=== PATIENT | female | born 1990 | race Caucasian/White ===

== ENCOUNTER 2016-09-22 13:53 | Emergency (ER) | payer MEDICAID, OTHER ==
--- NOTE | 2016-09-22 14:33 | ED.PDOC ---
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 Was seen yesterday by her OB and her U/S was reassuring. She says she is unsure if they are actual contractions. No bleeding. No fluid per vagina. No other complaints. Patient is on clonipin for anxiety associated with her thyroid disease. Timing/Duration: 1-3 hours Severity: mild Improving Factors: nothing Worsening Factors: nothing Associated Symptoms: denies symptoms Allergies/Adverse Reactions: Allergies Acetaminophen [From Tylenol W/Codeine] Allergy (Verified 09/22/16 14:15) Hives Bupropion [From Wellbutrin] Allergy (Verified 10/06/15 09:43) Codeine [From Tylenol W/Codeine] Allergy (Verified 10/06/15 09:43) Home Medications: Ambulatory Orders Clonazepam [Klonopin] 2 mg PO DAILY PRN 09/22/16 Vit W/ Ferrous Fumara [] 1 tab PO DAILY 09/22/16 Sertraline HCl [Zoloft] 100 mg PO DAILY 09/22/16 Review of Systems - Review of Systems Constitutional: States: no symptoms reported EENTM: States: no symptoms reported Respiratory: States: no symptoms reported Cardiology: States: no symptoms reported Gastrointestinal/Abdominal: States: no symptoms reported Genitourinary: States: see HPI Musculoskeletal: States: no symptoms reported Skin: States: no symptoms reported Neurological: States: no symptoms reported Endocrine: States: no symptoms reported Hematologic/Lymphatic: States: no symptoms reported Past Medical History (General) - Patient Medical History Hx Seizures: No Hx Stroke: No Hx Asthma: No Hx Congestive Heart Failure: No Hx Thyroid Disease: No Hx Diabetes: No Hx Renal Disease: No Hx Hepatitis C: Yes Hx MRSA: No - Vaccination History Hx Tetanus, Diphtheria Vaccination: No Hx Influenza Vaccination: Yes - 2015 Hx Pneumococcal Vaccination: No - Social History Hx Tobacco Use: Yes Hx Alcohol Use: Yes 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 Hx Substance Use Treatment: Yes - 2008 Hx Depression: Yes - Female History Patient is a Female of Child Bearing Age (10 -59 yrs old): Yes Hx Last Menstrual Period: 10/25/13 Patient : Yes Expected Date of Delivery:: 10/13/16 Family Medical History - Family History Mother Family History: Unknown Name: alon Living Status: Still Living Hx Family Asthma: No Hx Family Congestive Heart Failure: No Hx Family Hypertension: No Hx Family Stroke: No Hx Cardiac Disease: No Hx Family Diabetes: No Hx Family Cancer: No Physical Exam - Physical Exam General Appearance: Alert Respiratory: lungs clear Cardiovascular/Chest: regular rate, rhythm Gastrointestinal/Abdominal: normal bowel sounds, non tender, soft, other - Gravid Extremity: normal inspection Neurologic: no motor/sensory deficits Skin Exam: normal color Comments: Pelvic exam showed vertex presentation with anterior cervix. Os is fingertip. FHTs 140s. Progress - Progress Progress: 09/22/16 14:36 Her OB, Dr. Raza was called, and it was agreed to give the patient something for anxiety and send her home with orders to follow up with him tomorrow or tuesday. Patient was given ativan 1 mg IV x one. Departure - Departure Clinical Impression: Disposition: Discharge to Home or Self Care Departure Forms: ED Discharge - Pt. 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 Home Medications: Ambulatory Orders Clonazepam [Klonopin] 2 mg PO DAILY PRN 09/22/16 Vit W/ Ferrous Fumara [] 1 tab PO DAILY 09/22/16 Sertraline HCl [Zoloft] 100 mg PO DAILY 09/22/16 Additional Instructions: Follow up with your relief docking master tomorrow or tuesday.
[2016-09-22] MEDS ORDERED: KCL 20MEQ/WATER FOR INJ 100ML 20 MEQ in PREMIX BAG 1 BAG IVPB ONE (15:26)
[2016-09-22] MEDS ORDERED: KCL 20MEQ/WATER FOR INJ 100ML 100 ML IVPB ONE (15:34)
[2016-09-22] MEDS ORDERED: SODIUM CHLORIDE 0.9% 1000ML 1,000 ML ONE (16:05)
[2016-09-23 12:11] VITALS: BP 112/72; TEMP 98.5; O2SAT 98
== END 2016-09-22 18:13 | disposition home or self-care (01) ==
LOC: ER 13:53
DX: O99.283 Endocrine, nutritional and metabolic diseases complicating pregnancy, third trimester (principal); O99.343 Other mental disorders complicating pregnancy, third trimester; E07.9 Disorder of thyroid, unspecified; F41.9 Anxiety disorder, unspecified; Z79.899 Other long term (current) drug therapy; Z87.891 Personal history of nicotine dependence; Z88.6 Allergy status to analgesic agent; Z3A.37 37 weeks gestation of pregnancy
CPT/HCPCS: 36415; 80053; 84132; 85025; J2060; J3480

== ENCOUNTER → 2017-02-28 | Outpatient (CLI) | payer OTHER | END | disposition home or self-care (01) | LOC: YCFC.O 09:36 | PROVIDERS: ATTEND Nurse Practitioner Family | DX: K62.5 Hemorrhage of anus and rectum (principal); K25.7 Chronic gastric ulcer without hemorrhage or perforation; R53.83 Other fatigue ==

== ENCOUNTER → 2017-06-29 | Outpatient (CLI) | payer OTHER | LOC: YCFC.O 16:42 | PROVIDERS: ATTEND Nurse Practitioner Family | DX: O92.70 Unspecified disorders of lactation (principal) ==

== ENCOUNTER 2017-11-26 10:40 | Emergency (ER) | payer OTHER ==
[2017-11-26 10:58] VITALS: TEMP 98.2
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
[2017-11-26 12:08] VITALS: BP 102/72; O2SAT 92
== END 2017-11-26 12:08 | disposition home or self-care (01) ==
LOC: ER 10:40
DX: S06.0X9A Concussion with loss of consciousness of unspecified duration, initial encounter (principal); S00.03XA Contusion of scalp, initial encounter; J45.909 Unspecified asthma, uncomplicated; Z87.19 Personal history of other diseases of the digestive system; Z86.19 Personal history of other infectious and parasitic diseases; Y09 Assault by unspecified means; Z87.891 Personal history of nicotine dependence

== ENCOUNTER 2018-01-12 17:01 | Emergency (ER) | payer OTHER ==
[2018-01-12] MEDS ORDERED: KETOROLAC TROMETHAMINE INJ 30 MG/ML VIAL IM ONE (17:29)
[2018-01-12] MEDS ORDERED: PROMETHAZINE HCL 25 MG TAB PO ONE (17:29)
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
[2018-01-12] MEDS ORDERED: CIPROFLOXACIN 500 MG TAB PO ONE (19:02)
[2018-01-12] MEDS ORDERED: methylPREDNISolone SODIUM SUC 125 MG/2 ML VIAL IV ONE (19:02)
[2018-01-12] MEDS ORDERED: metroNIDAZOLE IV PREMIX 500MG 500 MG in PREMIX BAG 1 BAG IVPB ONE (19:02)
[2018-01-12] MEDS ORDERED: MORPHINE SULFATE INJ 10 MG/ML VIAL IV ONE (19:02)
[2018-01-12] MEDS ORDERED: SODIUM CHLORIDE 0.9% 1000ML 1,000 ML IVS ONE (19:03)
[2018-01-12] MEDS ORDERED: predniSONE 20 MG TAB PO ONE (19:07)
[2018-01-12] MEDS ORDERED: metroNIDAZOLE 500 MG TAB PO ONE (19:07)
[2018-01-12] MEDS ORDERED: sulfaSALAzine TAB 500 MG TAB PO ONE (19:08)
--- NOTE | 2018-01-12 19:11 | ED.PDOC ---
History of Present Illness - General Chief Complaint: Abdominal Pain Stated Complaint: Abdominal pain Time Seen by Provider: 01/12/18 17:05 Source: patient Exam Limitations: no limitations - History of Present Illness Initial Comments: the patient is a 27-year-old female presenting to emergency room secondary to abdominal pain primarily to the left and lower abdomen. She has a history of ulcerative colitis and has been off of her sulfasalazine for the last week. She has had some mild nausea but no vomiting. No obstructive symptoms. Questionable low-grade fever. No blood in the stool. She is feeling weak and tired. No syncope or near syncope. She has not had abdominal surgeries in the past. She is scheduled to see her drive in teller tomorrow according to her. Severity: moderate Improving Factors: nothing Worsening Factors: nothing Associated Symptoms: fever/chills, loss of appetite, malaise, nausea/vomiting Allergies/Adverse Reactions: Allergies Acetaminophen [From Tylenol W/Codeine] Allergy (Verified 11/26/17 11:04) Hives Bupropion [From Wellbutrin] Allergy (Verified 11/26/17 11:04) Codeine [From Tylenol W/Codeine] Allergy (Verified 10/06/15 09:43) Home Medications: Ambulatory Orders Albuterol Sulfate [Proair Hfa] 1 - 2 puff INH QID PRN 11/26/17 Cefdinir [Cefdinir] 300 mg PO BID 11/26/17 Cetirizine HCl [Cetirizine HCl] 10 mg PO DAILY 11/26/17 Clonazepam [Clonazepam] 2 mg PO BEDTIME 11/26/17 Gabapentin [Neurontin] 300 mg PO BID 11/26/17 Trazodone HCl [Trazodone HCl] 100 mg PO BEDTIME 11/26/17 Venlafaxine HCl [Venlafaxine HCl ER] 150 mg PO BEDTIME 11/26/17 methIMAzole [Tapazole] 10 mg PO DAILY 11/26/17 Review of Systems - Review of Systems Constitutional: States: fever, malaise EENTM: States: no symptoms reported Respiratory: States: no symptoms reported Cardiology: States: no symptoms reported Gastrointestinal/Abdominal: States: abdominal pain, nausea. Denies: constipation, diarrhea, vomiting Genitourinary: States: no symptoms reported Musculoskeletal: States: no symptoms reported Skin: States: no symptoms reported Neurological: States: no symptoms reported Endocrine: States: no symptoms reported All other Systems: No Change from Baseline Past Medical History (General) - Patient Medical History Hx Seizures: No Hx Stroke: No Hx Asthma: Yes Hx Congestive Heart Failure: No Hx Thyroid Disease: No Hx Diabetes: No Hx Gastroesophageal Reflux: - Hx diverticulitis Hx Renal Disease: No Hx Hepatitis C: Yes Hx MRSA: No - Vaccination History Hx Tetanus, Diphtheria Vaccination: No Hx Influenza Vaccination: Yes - 2016 Hx Pneumococcal Vaccination: No - Social History Hx Tobacco Use: Yes Hx Alcohol Use: Yes 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 Hx Substance Use Treatment: Yes - 2008 Hx Depression: Yes - Female History Patient is a Female of Child Bearing Age (10 -59 yrs old): Yes Hx Last Menstrual Period: 10/25/13 Patient : No Expected Date of Delivery:: 10/13/16 Family Medical History - Family History Mother Family History: No Known Name: alon Living Status: Still Living Hx Family Asthma: No Hx Family Congestive Heart Failure: No Hx Family Hypertension: No Hx Family Stroke: No Hx Cardiac Disease: No Hx Family Diabetes: No Hx Family Cancer: No Physical Exam - Physical Exam General Appearance: Alert, Unkempt Eye Exam: bilateral normal Ears, Nose, Throat: hearing grossly normal, normal ENT inspection, normal pharynx Neck: full range of motion, supple Respiratory: lungs clear, normal breath sounds, no respiratory distress, no accessory muscle use Cardiovascular/Chest: normal peripheral pulses, regular rate, rhythm, no edema Peripheral Pulses: radial,right: 2+, radial,left: 2+, dorsalis pedis,right: 2+, dorsalis pedis,left: 2+ Gastrointestinal/Abdominal: other - see history of present illness.no rebound or peritoneal signs. Rectal Exam: deferred Back Exam: normal inspection, no CVA tenderness Extremity: normal range of motion, non-tender, normal inspection, no pedal edema , normal capillary refill Neurologic: booth cashier II-XII nml as tested, alert, normal mood/affect, oriented x 3 Skin Exam: normal color Comments: Vital Signs - 24 hr 01/12/18 17:10 Temperature 99.1 F Pulse Rate [ 93 H Left Radial] Respiratory 20 Rate Blood Pressure 103/72 [Left Arm] O2 Sat by Pulse 100 Oximetry Progress - Progress Progress: 01/12/18 19:12 the patient to 27-year-old female with history of ulcerative colitis presenting with abdominal pain consistent with another ulcerative colitis flare. She has been off of her sulfasalazine for the last week according to her. White blood cell count is 9000 and ESR and CRP are within normal limits. The patient has deferred admission for IV hydration and IV steroids as well as any IV antibiotics. The patient has received 80 mg of oral prednisone, a dose of sulfasalazine, a dose of ciprofloxacin and metronidazole as well as a dose of a pain pill. She needs to keep herself well hydrated. She needs to keep her scheduled appointment with her drive in teller tomorrow for continuation of care of this flare. ER warnings were given for any significant worsening. Patient has agreed. - Results/Orders Results/Orders: Laboratory Tests 01/12/18 01/12/18 01/12/18 17:28 17:30 17:46 WBC 9.9 RBC 4.56 Hgb 14.1 Hct 41.2 MCV 90.4 MCH 30.9 MCHC 34.2 RDW 13.6 Plt Count 386 MPV 7.6 Absolute Neuts (auto) 6.40 Absolute Lymphs (auto) 2.90 Absolute Monos (auto) 0.40 Absolute Eos (auto) 0.20 Absolute Basos (auto) 0.10 Neutrophils % 64.5 Lymphocytes % 28.9 Monocytes % 4.4 Eosinophils % 1.5 Basophils % 0.7 ESR 5 Sodium Potassium Chloride Carbon Dioxide Anion Gap BUN Creatinine BUN/Creatinine Ratio Random Glucose Serum Osmolality Lactic Acid Calcium Total Bilirubin AST ALT Alkaline Phosphatase C-Reactive Protein Serum Total Protein Albumin Globulin Albumin/Globulin Ratio Amylase Lipase Urine Color Urine Appearance Urine pH Ur Specific [place] Urine Protein Urine Glucose (UA) Urine Ketones Urine Blood Urine Nitrite Urine Bilirubin Urine Urobilinogen Ur Leukocyte Esterase Urine RBC Urine WBC Ur Epithelial Cells Urine Bacteria Urine HCG, Qual Negative 01/12/18 01/12/18 01/12/18 17:46 17:46 17:46 WBC RBC Hgb Hct MCV MCH MCHC RDW Plt Count MPV Absolute Neuts (auto) Absolute Lymphs (auto) Absolute Monos (auto) Absolute Eos (auto) Absolute Basos (auto) Neutrophils % Lymphocytes % Monocytes % Eosinophils % Basophils % ESR Sodium 138 Potassium 3.5 L Chloride 108 Carbon Dioxide 22 Anion Gap 11.5 L BUN 15 Creatinine 0.70 BUN/Creatinine Ratio 21.4 H Random Glucose 93 Serum Osmolality 276.2 Lactic Acid 0.8 Calcium 9.5 Total Bilirubin 0.4 AST 19 ALT 24 Alkaline Phosphatase 67 C-Reactive Protein 0.5 Serum Total Protein 8.0 Albumin 4.4 Globulin 3.6 H Albumin/Globulin Ratio 1.2 Amylase 90 Lipase 41 Urine Color Urine Appearance Urine pH Ur Specific [place] Urine Protein Urine Glucose (UA) Urine Ketones Urine Blood Urine Nitrite Urine Bilirubin Urine Urobilinogen Ur Leukocyte Esterase Urine RBC Urine WBC Ur Epithelial Cells Urine Bacteria Urine HCG, Qual 01/12/18 18:00 WBC RBC Hgb Hct MCV MCH MCHC RDW Plt Count MPV Absolute Neuts (auto) Absolute Lymphs (auto) Absolute Monos (auto) Absolute Eos (auto) Absolute Basos (auto) Neutrophils % Lymphocytes % Monocytes % Eosinophils % Basophils % ESR Sodium Potassium Chloride Carbon Dioxide Anion Gap BUN Creatinine BUN/Creatinine Ratio Random Glucose Serum Osmolality Lactic Acid Calcium Total Bilirubin AST ALT Alkaline Phosphatase C-Reactive Protein Serum Total Protein Albumin Globulin Albumin/Globulin Ratio Amylase Lipase Urine Color Yellow Urine Appearance Clear Urine pH 6.5 Ur Specific [place] 1.025 Urine Protein Negative Urine Glucose (UA) Negative Urine Ketones Negative Urine Blood Negative Urine Nitrite Negative Urine Bilirubin Negative Urine Urobilinogen 0.2 Ur Leukocyte Esterase Negative Urine RBC 0-1 Urine WBC 0-1 Ur Epithelial Cells 0-1 Urine Bacteria 0 Urine HCG, Qual cute abdominal series appears benign. Departure - Departure Clinical Impression: Ulcerative colitis, acute Qualifiers: Digestive disease complication type: without complication Qualified Code(s): K51.90 - Ulcerative colitis, unspecified, without complications Disposition: Discharge to Home or Self Care Condition: Poor Departure Forms: ED Discharge - Pt. Copy, Patient Portal Self Enrollment Instructions: DI for Ulcerative Colitis Diet: bland diet Activity: increase activity as tolerated Referrals: Micki Seo NP [Primary Care Provider] - 1-2 Weeks Home Medications: Ambulatory Orders Albuterol Sulfate [Proair Hfa] 1 - 2 puff INH QID PRN 11/26/17 Cefdinir [Cefdinir] 300 mg PO BID 11/26/17 Cetirizine HCl [Cetirizine HCl] 10 mg PO DAILY 11/26/17 Clonazepam [Clonazepam] 2 mg PO BEDTIME 11/26/17 Gabapentin [Neurontin] 300 mg PO BID 11/26/17 Trazodone HCl [Trazodone HCl] 100 mg PO BEDTIME 11/26/17 Venlafaxine HCl [Venlafaxine HCl ER] 150 mg PO BEDTIME 11/26/17 methIMAzole [Tapazole] 10 mg PO DAILY 11/26/17 Additional Instructions: the patient to 27-year-old female with history of ulcerative colitis presenting with abdominal pain consistent with another ulcerative colitis flare. She has been off of her sulfasalazine for the last week according to her. White blood cell count is 9000 and ESR and CRP are within normal limits. The patient has deferred admission for IV hydration and IV steroids as well as any IV antibiotics. The patient has received 80 mg of oral prednisone, a dose of sulfasalazine, a dose of ciprofloxacin and metronidazole as well as a dose of a pain pill. She needs to keep herself well hydrated. She needs to keep her scheduled appointment with her drive in teller tomorrow for continuation of care of this flare. ER warnings were given for any significant worsening. Patient has agreed. Obviously if the patient continues to worsen instead of improve then she may require additional workup including additional imaging.
[2018-01-12] MEDS ORDERED: HYDROcodone 10MG/APAP 325MG 1 EA TAB PO ONE (19:15)
[2018-01-12 19:27] VITALS: BP 97/64; TEMP 97.8; O2SAT 99
== END 2018-01-12 19:27 | disposition home or self-care (01) ==
LOC: ER 17:01
DX: K51.90 Ulcerative colitis, unspecified, without complications (principal); J45.909 Unspecified asthma, uncomplicated; Z87.19 Personal history of other diseases of the digestive system; Z79.899 Other long term (current) drug therapy
CPT/HCPCS: 36415; 74019; 80053; 81001; 81025; 82150; 83605; 83690; 85025; 85651; 86140; 87040; J1885; J7512; Q0169

== ENCOUNTER 2018-02-09 10:52 | Emergency (ER) | payer OTHER ==
[2018-02-09 11:06] VITALS: TEMP 97.9
--- NOTE | 2018-02-09 11:45 | ED.PDOC ---
History of Present Illness - General Chief Complaint: Behavioral / Psych Stated Complaint: anxiety Time Seen by Provider: 02/09/18 11:45 - History of Present Illness Initial Comments: Shante Euceda 27 y/o female stated that she was in court hearing for child custody by CPS and had a verdict that child will be taken off her care and after wards she had anxiety attack-hyperventilating,crying.She was brought by EMS Timing/Duration: just prior to arrival Severity: moderate Episode Description: see hpi Associated Symptoms: anxiety Allergies/Adverse Reactions: Allergies Acetaminophen [From Tylenol W/Codeine] Allergy (Verified 02/09/18 11:06) Hives Bupropion [From Wellbutrin] Allergy (Verified 02/09/18 11:06) Codeine [From Tylenol W/Codeine] Allergy (Verified 02/09/18 11:06) Home Medications: Ambulatory Orders Albuterol Sulfate [Proair Hfa] 1 - 2 puff INH QID PRN 11/26/17 Cefdinir [Cefdinir] 300 mg PO BID 11/26/17 Cetirizine HCl [Cetirizine HCl] 10 mg PO DAILY 11/26/17 Clonazepam [Clonazepam] 2 mg PO BEDTIME 11/26/17 Gabapentin [Neurontin] 300 mg PO BID 11/26/17 Trazodone HCl [Trazodone HCl] 100 mg PO BEDTIME 11/26/17 Venlafaxine HCl [Venlafaxine HCl ER] 150 mg PO BEDTIME 11/26/17 methIMAzole [Tapazole] 10 mg PO DAILY 11/26/17 Review of Systems - Review of Systems Constitutional: States: no symptoms reported EENTM: States: no symptoms reported Respiratory: States: no symptoms reported Cardiology: States: no symptoms reported Neurological: States: emotional problems Past Medical History (General) - Patient Medical History Hx Seizures: Yes Hx Stroke: No Hx Asthma: Yes Hx Congestive Heart Failure: No Hx Thyroid Disease: Yes Hx Diabetes: No Hx Gastroesophageal Reflux: - Hx diverticulitis Hx Renal Disease: No Hx Hepatitis C: Yes Hx MRSA: No Hx Other PMH: Yes - anxiety - Vaccination History Hx Tetanus, Diphtheria Vaccination: No Hx Influenza Vaccination: No Hx Pneumococcal Vaccination: No - Social History Hx Tobacco Use: Yes Hx Alcohol Use: Yes 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 Hx Substance Use Treatment: Yes - 2008 Hx Depression: Yes Hx Physical Abuse: No Hx Emotional Abuse: No Hx Suspected Abuse: No - Female History Patient is a Female of Child Bearing Age (10 -59 yrs old): Yes Hx Last Menstrual Period: 10/25/13 - on transdermal OCP Patient : No Family Medical History - Family History Mother Family History: No Known Name: alon Living Status: Still Living Hx Family Asthma: No Hx Family Congestive Heart Failure: No Hx Family Hypertension: No Hx Family Stroke: No Hx Cardiac Disease: No Hx Family Diabetes: No Hx Family Cancer: No Physical Exam - Physical Exam General Appearance: Alert, Comfortable, No apparent distress Eyes, Ears, Nose, Throat Exam: normal ENT inspection Neck: non-tender, full range of motion, supple Respiratory: chest non-tender, lungs clear, normal breath sounds Cardiovascular/Chest: normal peripheral pulses, regular rate, rhythm, no murmur Peripheral Pulses: radial,right: 2+, radial,left: 2+ Gastrointestinal/Abdominal: normal bowel sounds, non tender, soft, no organomegaly Extremities Exam: non-tender Neurological: oriented x 3, depressed affect, other - crying Appearance: appropriate appearance, appropriate insight, neat, no memory impairment Behavior/Eye Contact/Speech: cooperative, good eye contact, normal speech Thoughts/Hallucinations: normal thought pattern Skin Exam: normal color, warm/dry Progress - Progress Progress: 02/09/18 12:25 Vital Signs - 8 hr 02/09/18 02/09/18 02/09/18 10:56 11:00 12:00 Temperature 97.9 F Pulse Rate [ 135 H 131 H pulse ox] Respiratory 28 H 28 H 24 Rate Blood Pressure 112/56 136/91 129/49 [left arm] O2 Sat by Pulse 100 95 99 Oximetry - Results/Orders Results/Orders: 02/09/18 11:45 URINE DRUG SCREEN, 7 ASSAY Stat EKG STAT HCG,QUALITATIVE URINE Stat URINALYSIS Stat Laboratory Results - last 24 hr 02/09/18 02/09/18 12:33 12:33 WBC 12.4 H RBC 4.37 Hgb 13.7 Hct 38.2 MCV 87.5 MCH 31.3 H MCHC 35.8 RDW 13.1 Plt Count 466 H MPV 8.6 Absolute Neuts (auto) 8.50 H Absolute Lymphs (auto) 2.80 Absolute Monos (auto) 1.00 H Absolute Eos (auto) 0.10 Absolute Basos (auto) 0.10 Neutrophils % 68.5 Lymphocytes % 22.4 Monocytes % 7.9 Eosinophils % 0.7 L Basophils % 0.5 PT 11.7 H INR 1.18 H PTT (SP) 27.1 D-Dimer, Quantitative 1.23 H* Sodium 135 Potassium 2.6 L Chloride 97 L Carbon Dioxide 24 Anion Gap 16.6 BUN 15 Creatinine 0.75 BUN/Creatinine Ratio 20.0 Random Glucose 74 Serum Osmolality 269.6 L Calcium 10.0 Magnesium 1.9 Creatine Kinase 429 H* CK-MB (CK-2) 3.5 CK-MB (CK-2) % 0.80 Troponin I < 0.02 - EKG/XRAY/CT EKG: Sinus, Tachy, no ST T wave changes Comments: HR-137 CT Ordered: Yes - cta-no pulmonary embolus Departure - Departure Clinical Impression: Chest pain of uncertain etiology, Elevated d-dimer, Anxiety attack Time of Disposition: 14:45 Disposition: Discharge to Home or Self Care Departure Forms: ED Discharge - Pt. Copy, Patient Portal Self Enrollment Instructions: DI for Anxiety -- Adult, Anxiety Disorders, Generalized Anxiety Disorder Referrals: Micki Seo NP [Primary Care Provider] - 1-2 Weeks Home Medications: Ambulatory Orders Albuterol Sulfate [Proair Hfa] 1 - 2 puff INH QID PRN 11/26/17 Cefdinir [Cefdinir] 300 mg PO BID 11/26/17 Cetirizine HCl [Cetirizine HCl] 10 mg PO DAILY 11/26/17 Clonazepam [Clonazepam] 2 mg PO BEDTIME 11/26/17 Gabapentin [Neurontin] 300 mg PO BID 11/26/17 Trazodone HCl [Trazodone HCl] 100 mg PO BEDTIME 11/26/17 Venlafaxine HCl [Venlafaxine HCl ER] 150 mg PO BEDTIME 11/26/17 methIMAzole [Tapazole] 10 mg PO DAILY 11/26/17 Additional Instructions: CONTINUE WITH ALL HOME MEDICATIONS;FOLLOW UP WITH YOUR PRIMARY MD 13 February 2018;
[2018-02-09] MEDS ORDERED: LACTATED RINGERS 1,000 ML IVS ONE (11:47)
[2018-02-09 12:19] VITALS: O2SAT 99
--- NOTE | 2018-02-09 14:29 | CT ---
EXAM DESCRIPTION: CTA Chest CLINICAL HISTORY: elevated d dimer /chest pain/tachycardia COMPARISON: None. TECHNIQUE: Postcontrast CT images of the chest are obtained using pulmonary embolism imaging protocol. Three-D MIP reconstructed images of the arterial vasculature are obtained. Coronal and sagittal reconstructed images of the also provided. Images are mildly degraded by patient breathing motion artifact. This exam was performed according to our departmental dose-optimization program, which includes automated exposure control, adjustment of the mA and/or kV according to patient size and/or use of iterative reconstruction technique . FINDINGS: Heart is unremarkable. No thoracic aortic aneurysm or dissection. No filling defects or emboli are seen in the pulmonary arteries. Mid to distal branches of the pulmonary arteries in the lower lobes are not well seen because of breathing motion artifact. No pleural or pericardial effusion is seen. Visualized portion of the upper abdomen is unremarkable. The lungs are normally aerated without acute appearing of tracer consolidation. No worrisome pulmonary nodules are seen. Mild groundglass attenuation in the lung bases suggest atelectasis. Osseous structures show no aggressive bony lesions. IMPRESSION: No radiographic evidence of pulmonary embolism. Mild atelectasis in the lung bases is seen. Electronically signed by: Mauro Cha MD 02/09/2018 2:28 PM CDT
[2018-02-09] MEDS ORDERED: KETOROLAC TROMETHAMINE INJ 30 MG/ML VIAL IV ONE (14:52)
[2018-02-09] MEDS ORDERED: CLINDAMYCIN HCL CAP 150 MG CAP PO ONE (14:52)
[2018-02-09 15:13] VITALS: BP 121/81
== END 2018-02-09 15:15 | disposition home or self-care (01) ==
LOC: ER 10:52
DX: R07.9 Chest pain, unspecified (principal); F41.9 Anxiety disorder, unspecified; F15.20 Other stimulant dependence, uncomplicated; R79.89 Other specified abnormal findings of blood chemistry; R00.0 Tachycardia, unspecified; R56.9 Unspecified convulsions; J45.909 Unspecified asthma, uncomplicated; E07.9 Disorder of thyroid, unspecified; F17.200 Nicotine dependence, unspecified, uncomplicated; Z79.899 Other long term (current) drug therapy; Z86.19 Personal history of other infectious and parasitic diseases
CPT/HCPCS: 36415; 71275; 80048; 82550; 82553; 84484; 85025; 85379; 85610; 85730; 93005; J1885; J2060; J7120

== ENCOUNTER 2018-06-19 13:47 | Emergency (ER) | payer OTHER ==
[2018-06-19] MEDS: LACTATED RINGERS 1,000 ML IVS ONE (14:54)
[2018-06-19] MEDS: KETOROLAC TROMETHAMINE INJ 30 MG/ML VIAL IV ONE (15:16)
--- NOTE | 2018-06-19 15:26 | ED.PDOC ---
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 Timing/Duration: other - see hpi Quality: other Onset Location: unknown Radiation: none Activites at Onset: none Prior abdominal problems: none Sexual intercourse history: single partner Improving Factors: nothing Worsening Factors: nothing Associated Symptoms: denies symptoms Allergies/Adverse Reactions: Allergies Acetaminophen [From Tylenol W/Codeine] Allergy (Verified 02/09/18 11:06) Hives Bupropion [From Wellbutrin] Allergy (Verified 02/09/18 11:06) Codeine [From Tylenol W/Codeine] Allergy (Verified 02/09/18 11:06) Home Medications: Ambulatory Orders medroxyPROGESTERone TAB [Provera] 5 mg PO DAILY 7 Days #7 tab 06/19/18 Review of Systems - Review of Systems Constitutional: States: no symptoms reported EENTM: States: no symptoms reported Respiratory: States: no symptoms reported Cardiology: States: no symptoms reported Gastrointestinal/Abdominal: States: no symptoms reported Genitourinary: States: see HPI Musculoskeletal: States: no symptoms reported Skin: States: no symptoms reported Past Medical History (General) - Patient Medical History Hx Seizures: Yes Hx Stroke: No Hx Asthma: No Hx of COPD: No Hx Cardiac Disorders: No Hx Congestive Heart Failure: No Hx Hypertension: No Hx Thyroid Disease: Yes - hyperthyroidism Hx Diabetes: No Hx Gastroesophageal Reflux: - Hx diverticulitis Hx Renal Disease: No Hx Cancer: No Hx Hepatitis C: Yes Hx MRSA: No Surgical History: no surgical history - Vaccination History Hx Tetanus, Diphtheria Vaccination: No Hx Influenza Vaccination: No Hx Pneumococcal Vaccination: No Immunizations Up to Date: No - Social History Hx Tobacco Use: Yes Hx Alcohol Use: No 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 Hx Substance Use Treatment: Yes - 2008 Hx Depression: Yes Hx Physical Abuse: No Hx Emotional Abuse: No Hx Suspected Abuse: No - Female History Hx Last Menstrual Period: 05/24/18 - on transdermal OCP Patient : No Family Medical History - Family History Mother Family History: No Known Name: alon Living Status: Still Living Hx Family Asthma: No Hx Family Congestive Heart Failure: No Hx Family Hypertension: No Hx Family Stroke: No Hx Cardiac Disease: No Hx Family Diabetes: No Hx Family Cancer: No Physical Exam - Physical Exam General Appearance: Alert, Comfortable, No apparent distress Eyes, Ears, Nose, Throat Exam: normal ENT inspection, other - no exophthalmos Neck: non-tender, supple, normal inspection, other - no thyromegaly Cardiovascular/Respiratory: regular rate, rhythm, no M/R/G, normal peripheral pulses, no JVD, normal breath sounds Gastrointestinal/Abdominal: normal bowel sounds, non tender, soft, no organomegaly Pelvic Exam: no cerv. motion tender, active bleeding - blood clots intravaginally Back Exam: normal inspection, no CVA tenderness, no vertebral tenderness Extremity: non-tender, no pedal edema, no calf tenderness Neurologic: alert, oriented x 3 Skin Exam: normal color, warm/dry Lymphatic: no adenopathy Progress - Progress Progress: 06/19/18 15:38 Vital Signs - 8 hr 06/19/18 06/19/18 13:55 15:23 Temperature 98.4 F Pulse Rate [ 88 60 Brachial] Respiratory 16 16 Rate Blood Pressure 117/79 120/77 [Left Arm] O2 Sat by Pulse 98 99 Oximetry - Results/Orders Results/Orders: 06/19/18 15:24 GENITAL CULTURE Stat WET PREP Routine Laboratory Results - last 24 hr 06/19/18 06/19/18 06/19/18 14:42 Unknown Unknown WBC 6.2 RBC 4.38 Hgb 13.7 Hct 40.9 MCV 93.3 MCH 31.2 H MCHC 33.6 RDW 13.5 Plt Count 269 MPV 9.1 Absolute Neuts (auto) 4.00 Absolute Lymphs (auto) 1.70 Absolute Monos (auto) 0.30 Absolute Eos (auto) 0.10 Absolute Basos (auto) 0.00 Neutrophils % 64.8 Lymphocytes % 28.0 Monocytes % 4.7 Eosinophils % 2.2 Basophils % 0.3 Sodium 137 Potassium 3.4 L Chloride 103 Carbon Dioxide 27 Anion Gap 10.4 L BUN 9 Creatinine 0.46 L BUN/Creatinine Ratio 19.6 Random Glucose 94 Serum Osmolality 272.3 L Calcium 9.4 TSH Serum HCG, Qual Urine Color Yellow Urine Appearance Sl cloudy Urine pH 5.5 Ur Specific [place] 1.020 Urine Protein Negative Urine Glucose (UA) Negative Urine Ketones Negative Urine Blood Large H Urine Nitrite Negative Urine Bilirubin Negative Urine Urobilinogen 0.2 Ur Leukocyte Esterase Negative Urine RBC 30-40 H Urine WBC 0-1 Ur Epithelial Cells 1-3 Urine Bacteria Rare Urine Mucus Trace 06/19/18 06/19/18 Unknown Unknown WBC RBC Hgb Hct MCV MCH MCHC RDW Plt Count MPV Absolute Neuts (auto) Absolute Lymphs (auto) Absolute Monos (auto) Absolute Eos (auto) Absolute Basos (auto) Neutrophils % Lymphocytes % Monocytes % Eosinophils % Basophils % Sodium Potassium Chloride Carbon Dioxide Anion Gap BUN Creatinine BUN/Creatinine Ratio Random Glucose Serum Osmolality Calcium TSH 0.65 Serum HCG, Qual Negative Urine Color Urine Appearance Urine pH Ur Specific [place] Urine Protein Urine Glucose (UA) Urine Ketones Urine Blood Urine Nitrite Urine Bilirubin Urine Urobilinogen Ur Leukocyte Esterase Urine RBC Urine WBC Ur Epithelial Cells Urine Bacteria Urine Mucus Departure - Departure Clinical Impression: Dysfunctional or functional uterine hemorrhage Time of Disposition: 15:59 Disposition: Discharge to Home or Self Care Departure Forms: ED Discharge - Pt. Copy, Patient Portal Self Enrollment Instructions: Heavy Periods (DC), Heavy Periods Referrals: Micki Seo, CHRONIC CARE NURSE [Primary Care Provider] - 1-2 Weeks Prescriptions: medroxyPROGESTERone TAB [Provera] 5 mg PO DAILY 7 Days #7 tab Home Medications: Ambulatory Orders medroxyPROGESTERone TAB [Provera] 5 mg PO DAILY 7 Days #7 tab 06/19/18 Additional Instructions: Need to make appointment with comb tender Dr. Funes call for your appointment 20 June 2018;May take over the counter Aleve 1-2 tablets am/pm for uterine cramps
[2018-06-19 16:32] VITALS: BP 116/77; TEMP 98; O2SAT 96
== END 2018-06-19 16:35 | disposition home or self-care (01) ==
LOC: ER 13:47
DX: N93.8 Other specified abnormal uterine and vaginal bleeding (principal); F15.90 Other stimulant use, unspecified, uncomplicated; F32.9 Major depressive disorder, single episode, unspecified; E05.90 Thyrotoxicosis, unspecified without thyrotoxic crisis or storm; Z87.891 Personal history of nicotine dependence; Z86.19 Personal history of other infectious and parasitic diseases; Z88.8 Allergy status to other drugs, medicaments and biological substances; Z88.5 Allergy status to narcotic agent; Z88.6 Allergy status to analgesic agent
CPT/HCPCS: 36415; 80048; 81001; 84443; 84703; 85025; 87210; 87491; 87591; J1885; J7120

== ENCOUNTER 2018-11-09 18:02 | Emergency (ER) | payer OTHER ==
[2018-11-09 18:37] VITALS: TEMP 98.9; O2SAT 98
--- NOTE | 2018-11-09 18:38 | ED.PDOC ---
History of Present Illness - General Chief Complaint: Skin/Abrasion/Tear Stated Complaint: rednees skin Time Seen by Provider: 11/09/18 18:36 Source: patient Exam Limitations: no limitations - History of Present Illness Initial Comments: Shante Euceda 28 y/o female stated that she had skin redness below her right breast for the last 3 days and squeezed pus out of it. Timing/Duration: other - 2-3 days Severity: mild Location: torso Improving Factors: nothing Worsening Factors: nothing Associated Symptoms: rash Allergies/Adverse Reactions: Allergies Acetaminophen [From Tylenol W/Codeine] Allergy (Verified 02/09/18 11:06) Hives Bupropion [From Wellbutrin] Allergy (Verified 02/09/18 11:06) Codeine [From Tylenol W/Codeine] Allergy (Verified 02/09/18 11:06) Home Medications: Ambulatory Orders Clindamycin HCl 300 mg PO TID #42 cap 11/09/18 Mupirocin 2 % Oint [Bactroban Oint] 22 gm TOP BID 10 Days #1 tube 11/09/18 Review of Systems - Review of Systems Constitutional: States: no symptoms reported EENTM: States: no symptoms reported Respiratory: States: no symptoms reported Skin: States: no symptoms reported All other Systems: Reviewed and Negative, No Change from Baseline Past Medical History (General) - Patient Medical History Hx Seizures: Yes Hx Stroke: No Hx Asthma: No Hx of COPD: No Hx Cardiac Disorders: No Hx Congestive Heart Failure: No Hx Hypertension: No Hx Thyroid Disease: Yes - hyperthyroidism Hx Diabetes: No Hx Gastroesophageal Reflux: - Hx diverticulitis Hx Renal Disease: No Hx Cancer: No Hx Hepatitis C: Yes Hx MRSA: No Surgical History: no surgical history - Vaccination History Hx Tetanus, Diphtheria Vaccination: No Hx Influenza Vaccination: No Hx Pneumococcal Vaccination: No - Social History Hx Tobacco Use: Yes Hx Alcohol Use: No 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 Hx Substance Use Treatment: Yes - 2008 Hx Depression: Yes Hx Physical Abuse: No Hx Emotional Abuse: No Hx Suspected Abuse: No - Female History Hx Last Menstrual Period: 06/16/18 - on transdermal OCP Patient : Yes Expected Date of Delivery:: 03/23/19 Hx Gestational Age: 20 Family Medical History - Family History Mother Family History: No Known Name: alon Living Status: Still Living Hx Family Asthma: No Hx Family Congestive Heart Failure: No Hx Family Hypertension: Yes - father Hx Family Stroke: No Hx Cardiac Disease: No Hx Family Diabetes: No Hx Family Cancer: No Physical Exam - Physical Exam General Appearance: Alert, Comfortable, No apparent distress Eyes, Ears, Nose, Throat Exam: normal ENT inspection Neck: normal inspection Cardiovascular/Chest: normal peripheral pulses, regular rate, rhythm Respiratory: normal breath sounds Gastrointestinal/Abdominal: non tender, soft, other - gravid uterus Back Exam: no CVA tenderness Extremity: no pedal edema, no calf tenderness Neurologic: alert, oriented x 3 Skin Exam: warm/dry Skin Problem Location: torso Skin Character: abscess Lymphatic: no adenopathy Progress - Progress Progress: 11/09/18 19:11 Vital Signs - 8 hr 11/09/18 18:33 Temperature 98.9 F Pulse Rate [ 95 H Pulse Ox] Respiratory 18 Rate Blood Pressure 95/75 [R Arm] O2 Sat by Pulse 98 Oximetry Departure - Departure Clinical Impression: Skin abscess Qualifiers: Site of cutaneous abscess: trunk Site of cutaneous abscess of trunk: chest wall Qualified Code(s): L02.213 - Cutaneous abscess of chest wall Time of Disposition: 19:12 Disposition: Discharge to Home or Self Care Condition: Fair Departure Forms: ED Discharge - Pt. Copy, Patient Portal Self Enrollment Instructions: DI for Abrasion, Skin Abscess Referrals: Micki Seo NP [Primary Care Provider] - 1-2 Weeks Prescriptions: Clindamycin HCl 300 mg PO TID #42 cap Mupirocin 2 % Oint [Bactroban Oint] 22 gm TOP BID 10 Days #1 tube Home Medications: Ambulatory Orders Clindamycin HCl 300 mg PO TID #42 cap 11/09/18 Mupirocin 2 % Oint [Bactroban Oint] 22 gm TOP BID 10 Days #1 tube 11/09/18 Additional Instructions: Follow up with primary Md 13 Nov 2018 for recheck as needed
[2018-11-09] MEDS ORDERED: NEOMYCIN-BACITRACIN-POLYMYXIN 0.9 GM UD TOP ONE (18:52)
[2018-11-09] MEDS ORDERED: CLINDAMYCIN HCL CAP 150 MG CAP PO ONE (19:12)
[2018-11-09 19:45] VITALS: BP 110/82
== END 2018-11-09 19:40 | disposition home or self-care (01) ==
LOC: ER 18:02
DX: O99.719 Diseases of the skin and subcutaneous tissue complicating pregnancy, unspecified trimester (principal); L02.213 Cutaneous abscess of chest wall; O99.280 Endocrine, nutritional and metabolic diseases complicating pregnancy, unspecified trimester; E05.90 Thyrotoxicosis, unspecified without thyrotoxic crisis or storm; O99.340 Other mental disorders complicating pregnancy, unspecified trimester; F32.9 Major depressive disorder, single episode, unspecified; Z3A.00 Weeks of gestation of pregnancy not specified; Z87.891 Personal history of nicotine dependence; Z86.19 Personal history of other infectious and parasitic diseases

== ENCOUNTER → 2018-12-11 | Outpatient (CLI) | payer OTHER | LOC: LAB.O 08:54 | PROVIDERS: ATTEND Obstetrics & Gynecology | DX: O99.282 Endocrine, nutritional and metabolic diseases complicating pregnancy, second trimester (principal); Z3A.24 24 weeks gestation of pregnancy ==

== ENCOUNTER → 2019-02-24 | Day surgery (SDC) | payer OTHER ==
[~2019-02-24] MED LIST: DEXAMETHASONE INJ 10 MG/ML VIAL IV ONE; ELECTROLYTE-A 1,000 ML IVS ONE; HYDROmorphone HCL INJ 2 MG/ML VIAL ONE; KCL 20 MEQ/NS 1,000 ML IVS ONE; LACTATED RINGERS 1,000 ML IVS ONE; LACTATED RINGERS 1,000 ML ONE; MIDAZOLAM INJ 2 MG/2 ML VIAL ONE; MORPHINE SULFATE INJ 10 MG/ML VIAL IV ONE; MORPHINE SULFATE INJ 10 MG/ML VIAL ONE; ONDANSETRON INJ 4 MG/2 ML VIAL ONE; OXYTOCIN INJ 10 UNITS/ML VIAL IM ONE; OXYTOCIN INJ 10 UNITS/ML VIAL ONE; PROMETHAZINE HCL INJ 12.5 MG in SODIUM CHLORIDE 0.9% 50ML 50 ML IVPB ONE; PROMETHAZINE HCL INJ 25 MG/ML VIAL ONE; PROPOFOL 200 MG/20 ML VIAL IV ONE; ROCURONIUM BROMIDE 10 MG/ML VIAL ONE; SODIUM CHLORIDE 0.9% 1000ML 0 ML ONE; SODIUM CHLORIDE 0.9% 1000ML 1,000 ML ONE; SODIUM CHLORIDE 0.9% 250ML 250 ML ONE; SODIUM CHLORIDE 0.9% 50ML 50 ML ONE; SUCCINYLCHOLINE CHLORIDE 200 MG/10 ML VIAL ONE; SUGAMMADEX SODIUM 200 MG/2 ML VIAL IV ONE; ceFAZolin SODIUM 1 GM VIAL IVPB ONE; raNITIdine HCL INJ 25 MG/ML VIAL IV ONE
--- NOTE | 2019-02-24 20:07 | ED.PDOC ---
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 PAIN, 345/7 WK IUP Severity: severe Improving Factors: nothing Worsening Factors: nothing Associated Symptoms: other - ABDOMINAL PAIN Allergies/Adverse Reactions: Allergies Acetaminophen [From Tylenol W/Codeine] Allergy (Verified 02/09/18 11:06) Hives Bupropion [From Wellbutrin] Allergy (Verified 02/09/18 11:06) Codeine [From Tylenol W/Codeine] Allergy (Verified 02/09/18 11:06) Home Medications: Ambulatory Orders Clindamycin HCl 300 mg PO TID #42 cap 11/09/18 Mupirocin 2 % Oint [Bactroban Oint] 22 gm TOP BID 10 Days #1 tube 11/09/18 Review of Systems - Review of Systems Constitutional: States: diaphoresis Gastrointestinal/Abdominal: States: abdominal pain, nausea Genitourinary: States: other - VAGINAL BLEEDING. Denies: dysuria, frequency Musculoskeletal: States: no symptoms reported Skin: States: no symptoms reported, other Endocrine: States: excessive sweating Past Medical History (General) - Patient Medical History Hx Seizures: No Hx Stroke: No Hx Dementia: No Hx Asthma: No Hx of COPD: No Hx Cardiac Disorders: No Hx Congestive Heart Failure: No Hx Pacemaker: No Hx Hypertension: No Hx Thyroid Disease: No Hx Diabetes: No Hx Gastroesophageal Reflux: No Hx Renal Disease: No Hx Cancer: No Hx of HIV: No Hx Hepatitis C: No Hx MRSA: No Surgical History: no surgical history - Vaccination History Hx Tetanus, Diphtheria Vaccination: Yes Hx Influenza Vaccination: No Hx Pneumococcal Vaccination: No Immunizations Up to Date: No - Social History Hx Tobacco Use: Yes Hx Alcohol Use: No Hx Substance Use: No Hx Substance Use Treatment: No Hx Depression: No Feels Threatened In Home Enviroment: No Feels Threatened In a Relationship: No Hx Physical Abuse: No Hx Emotional Abuse: No Hx Suspected Abuse: No - Activities of Daily Living Hospice Agency (if applicable):: None - Female History Patient is a Female of Child Bearing Age (10 -59 yrs old): Yes - 34.5 weeds gestaion Hx Last Menstrual Period: 06/16/18 - on transdermal OCP Patient : Yes Expected Date of Delivery:: 04/01/19 Hx Gestational Age: 35 - REPORTS NO PROBLEMS WITH AND NO ABN US - Triage Comment ED Triage Comment: [email or web address] Family Medical History - Family History Mother Family History: No Known Name: alon Living Status: Still Living Hx Family Asthma: No Hx Family Congestive Heart Failure: No Hx Family Hypertension: Yes - father Hx Family Stroke: No Hx Cardiac Disease: No Hx Family Diabetes: No Hx Family Cancer: No Physical Exam - Physical Exam General Appearance: Obvious distress, Other - PALE Eye Exam: bilateral normal Ears, Nose, Throat: normal ENT inspection Neck: full range of motion, supple Respiratory: lungs clear, normal breath sounds Cardiovascular/Chest: regular rate, rhythm, no murmur Peripheral Pulses: radial,left: 2+ Gastrointestinal/Abdominal: soft, other - GRAVID, DIFFUSE TTP Extremity: no calf tenderness Skin Exam: diaphoresis, other - COOL TO THE TOUCH, pallor Lymphatic: no adenopathy Comments: ACTIVE VAGINAL BLEEDING, SVE, CLOTS, CX NOT WELL PALPATED, NO EVIDENCE FOR COMPLETE DILATION. Progress - Progress Progress: 02/24/191909 D/W DR SWANSON, REQUESTS OR CREW AND HE IS ON HIS WAY 1919: DR CHRISTIANSON CALLED AT [facility]'S REQUEST, HE'S OOT. ADVISES TRY DR BUSTILLOS. D/W DR BUSTILLOS HE'S AVAILABLE WHEN DR SWANSON ARRIVES. 1924: D/W DON, STILL NO CREW OF YET. ADVISED DR SWANSON HE'S STILL ENROUTE. 1934: PT HAS IMPROVED, COLOR BETTER VS NL. ARRANGING FOR POSSIBLE EMS TRANSPORT BACK TO [place] IN THE EVENT WE CANNOT FIND A SURGICAL CREW. 1944: LAB CALLED, CO2 15 K+ 2.5, WILL PLACE ON STEAM CONDITIONER FILLING AND START LR WITH 20 MEQ KCL/L. 1999: DR SWANSON HERE WILL TAKE PT TO OR STATES ITS FINE TO CALL DR BUSTILLOS. Procedures - Additional Procedures Progress: BED SIDE US, SEVERE BRADYCARDIA WITH POOR CARDIAC OUTPUT Departure - Departure Clinical Impression: Placental abruption Qualifiers: Trimester: third trimester Qualified Code(s): O45.93 - Premature separation of placenta, unspecified, third trimester Qualifiers: Weeks of gestation: 35 weeks Qualified Code(s): Z3A.35 - 35 weeks gestation of Time of Disposition: 20:00 Disposition: Admit Patient Condition: Serious Departure Forms: ED Discharge - Pt. Copy, Patient Portal Self Enrollment Referrals: Micki Seo NP [Primary Care Provider] - 1-2 Weeks Home Medications: Ambulatory Orders Clindamycin HCl 300 mg PO TID #42 cap 11/09/18 Mupirocin 2 % Oint [Bactroban Oint] 22 gm TOP BID 10 Days #1 tube 11/09/18 Critical Care Note - Critical Care Note Total Time (mins): 60 Comments: EVENT: PLACENTAL ABRUPTION IN 3RD TRIMESTER FINDINGS: HEAVY VAGINAL BLEEDING, HYPOVOLEMIC SHOCK CV: RACHEL INTERVENTION: FLUID RESUSCITATION, MULTIPLE CONSULTATIONS, ARRANGEMENT FOR OR CREW
[2019-02-24] MEDS: MEPERIDINE HCL 50 MG/ML VIAL ONE ×2 (21:53→21:55)
[2019-02-24] MEDS: HYDROmorphone HCL INJ 2 MG/ML VIAL ONE ×5 (22:05→22:51)
[2019-02-24 22:56] VITALS: O2SAT 99
[2019-02-25 01:15] VITALS: BP 128/74; TEMP 98.4
== END ==
LOC: ER 19:07 → AMB 20:28
PROVIDERS: ATTEND Obstetrics & Gynecology
DX: O45.93 Premature separation of placenta, unspecified, third trimester (principal); Z3A.35 35 weeks gestation of pregnancy
CPT/HCPCS: 36415; 36430; 80051; 80053; 80307; 81001; 82948; 85025; 85610; 85730; 86922; A4216; J0330; J1170; J2175; J2250; J2270; J2405; J2550; J2590; J3480; J7030; J7050; J7120; P9016

== ENCOUNTER → 2019-03-29 | Outpatient (CLI) | payer OTHER | LOC: LAB.O 10:33 | PROVIDERS: ATTEND Obstetrics & Gynecology | DX: Z86.39 Personal history of other endocrine, nutritional and metabolic disease (principal) ==

== ENCOUNTER 2019-05-03 10:44 | Emergency (ER) | payer OTHER ==
[2019-05-03 11:13] VITALS: TEMP 98.6
[2019-05-03] MEDS ORDERED: SODIUM CHLORIDE 0.9% (FLUSH) 10 ML SYG IV PRN (11:14)
[2019-05-03] MEDS ORDERED: SODIUM CHLORIDE 0.9% 1000ML 1,000 ML IVS PRN (11:14)
[2019-05-03] MEDS ORDERED: ONDANSETRON INJ 4 MG/2 ML VIAL IV ONE (11:14)
[2019-05-03] MEDS ORDERED: MORPHINE SULFATE INJ 10 MG/ML VIAL IV ONE ×2 (11:15→12:14)
--- NOTE | 2019-05-03 13:00 | CT ---
EXAM DESCRIPTION: Abdomen/Pelvis w/Contrast: Computed Tomography. CLINICAL HISTORY: 28 years Female left flank pain, ulcerative colitis COMPARISON: CT scan of the chest and upper abdomen 02/09/2018. TECHNIQUE: Spiral-axial scans at 5 x 5 mm intervals through the abdomen and pelvis, after nonionic IV contrast without oral contrast. Coronal and sagittal 2.0 mm reconstructions. No adverse reactions. Total Exam DLP: 425.93 mGy-cm. This exam was performed according to our departmental dose-optimization program which includes automated exposure control, adjustment of the mA and/or kV according to patient size and/or use of iterative reconstruction technique; to reduce radiation dose to as low as reasonably achievable (ALARA). FINDINGS: Lung bases and pleura: Minimal atelectasis in the right base. Liver, Stomach, Spleen, Adrenal Glands: Minimal distention of the stomach by fluid. Long axis of the hepatic right lobe 18.4 cm. No focal lesions. Spleen and adrenals negative. Pancreas, Gallbladder, Ducts: Gallbladder visualized. Other organs unremarkable. Kidneys and Ureters: Negative. Mesentery: Decreased due to patient body habitus, no abnormalities. Aorta: Negative. Small Bowel: Fluid in the distal jejunum and proximal ileum with mild distention and air-fluid levels in these segments. Terminal Ileum/Cecum: Fluid in the terminal ileum but no significant distention. Distention of the cecum by fecal material and minimal gas. Colon: Distention by fecal matter and gas extending to the distal transverse colon. Redundant splenic flexure with gas. Thickening of the mucosa of the distal descending colon and rectosigmoid but no pericolic inflammatory changes. This begins at the proximal descending colon. Pelvic Organs: Uterus is retroverted with IUD in customary position endometrium near the fundus. Air pocket in the left cervix and vagina can be related to tampon, recent examination, or intercourse. No free fluid. 2.5 x 2.3 x 2.2 cm cyst with enhancing camacho in the right ovary. Spine and Bony Pelvis: Negative. Abdominal Wall/Back Soft Tissues: Negative. IMPRESSION: 1. Intermittent mucosal thickening in the descending colon and sigmoid. No serosal or pericolic inflammatory changes. This may be related to clinical history of left lower quadrant pain and posterior colitis. No free air or fluid. Marked proximal colonic constipation. Distal jejunum and proximal ileum, minimally distended by fluid with air-fluid levels but no inflammatory mesenteric changes or free fluid. This could be related to clinical history or represent viral enteritis. 2. Kidneys and ureters are unremarkable. 3. Mild enlargement of the liver but no focal findings and no ascites. 4. 2.5 cm benign appearing right ovarian cyst. No free fluid. No follow-up imaging is recommended. Reference: J Am Shandra Radiol 2013;10:675-681. Uterus is retroverted with IUD in customary position. Electronically signed by: Mac Guevara MD 05/03/2019 12:59 PM CDT
--- NOTE | 2019-05-03 13:18 | ED.PDOC ---
History of Present Illness - General Chief Complaint: Abdominal Pain Stated Complaint: Abdominal pain, N/V, anxiety Time Seen by Provider: 05/03/19 10:45 - History of Present Illness Initial Comments: The patient is a 28F who presents to the ED complaining of abdominal pain with nausea/vomiting and diarrhea. She has been sick for the past two days. Complains of diffuse cramping abdominal pain with vomiting and bloody diarrhea. She has had chills without fevers. Complains of generalized weakness as well. She is currently menstruating. She denies dysuria or other complaints. Review of Systems - Review of Systems Constitutional: States: chills, malaise, weakness - generalized EENTM: States: no symptoms reported Respiratory: Denies: cough, short of breath Cardiology: Denies: chest pain, palpitations Gastrointestinal/Abdominal: States: abdominal pain, diarrhea, nausea, vomiting Genitourinary: Denies: dysuria, frequency, hematuria Musculoskeletal: States: no symptoms reported Skin: States: no symptoms reported. Denies: rash Neurological: States: anxiety. Denies: numbness, paresthesia, tingling, tremors, weakness Endocrine: States: no symptoms reported Hematologic/Lymphatic: States: no symptoms reported All other Systems: Reviewed and Negative Past Medical History (General) - Patient Medical History Hx Seizures: No Hx Stroke: No Hx Dementia: No Hx Asthma: No Hx of COPD: No Hx Cardiac Disorders: No Hx Congestive Heart Failure: No Hx Pacemaker: No Hx Hypertension: No Hx Thyroid Disease: No Hx Diabetes: No Hx Gastroesophageal Reflux: No Hx Renal Disease: No Hx Cancer: No Hx of HIV: No Hx Hepatitis C: No Hx MRSA: No Surgical History: other - Vaccination History Hx Tetanus, Diphtheria Vaccination: No Hx Influenza Vaccination: Yes Hx Pneumococcal Vaccination: No - Social History Hx Tobacco Use: Yes Hx Alcohol Use: No Hx Substance Use: No Hx Substance Use Treatment: No Hx Depression: Yes Hx Physical Abuse: No Hx Emotional Abuse: No Hx Suspected Abuse: No - Female History Patient is a Female of Child Bearing Age (10 -59 yrs old): Yes Hx Last Menstrual Period: 05/03/19 Patient : No Expected Date of Delivery:: 04/01/19 Hx Gestational Age: 35 - REPORTS NO PROBLEMS WITH AND NO ABN US Family Medical History - Family History Mother Family History: No Known Name: alon Living Status: Still Living Hx Family Asthma: No Hx Family Congestive Heart Failure: No Hx Family Hypertension: Yes - father Hx Family Stroke: No Hx Cardiac Disease: No Hx Family Diabetes: No Hx Family Cancer: No Physical Exam - Physical Exam General Appearance: Anxious, No apparent distress, Well Developed, Well Nourished Eyes, Ears, Nose, Throat Exam: normal ENT inspection Neck: full range of motion Respiratory: no respiratory distress Cardiovascular/Chest: regular rate, rhythm, no murmur Peripheral Pulses: No deficit, 2+ Gastrointestinal/Abdominal: normal bowel sounds, no organomegaly, tenderness - mild, diffuse Neurologic: alert, oriented x 3 Skin Exam: normal color, warm/dry Progress - Progress Progress: 05/03/19 11:14 Sodium Chloride 0.9% (Flush) [Saline Flush Syringe] 10 ml IV PRN PRN Sodium Chloride 0.9% 1000ML [Ns 1000 ml] 1,000 ml IVS .QD 05/03/19 11:15 Hold Metformin x 48Hrs [id number] Laboratory Results - last 24 hr 05/03/19 05/03/19 05/03/19 11:33 11:33 11:33 WBC 9.2 RBC 4.64 Hgb 13.8 Hct 41.3 MCV 89.0 MCH 29.8 MCHC 33.5 RDW 14.9 H Plt Count 291 MPV 9.0 Absolute Neuts (auto) 6.40 Absolute Lymphs (auto) 2.10 Absolute Monos (auto) 0.40 Absolute Eos (auto) 0.30 Absolute Basos (auto) 0.10 Neutrophils % 69.5 Lymphocytes % 22.6 Monocytes % 3.9 Eosinophils % 3.4 Basophils % 0.6 Sodium 136 Potassium 4.3 Chloride 103 Carbon Dioxide 22 Anion Gap 15.3 BUN 14 Creatinine 0.88 BUN/Creatinine Ratio 15.9 Random Glucose 94 Serum Osmolality 272.2 L Calcium 9.3 Lipase 27 Serum HCG, Qual Negative Urine Color Urine Appearance Urine pH Ur Specific [place] Urine Protein Urine Glucose (UA) Urine Ketones Urine Blood Urine Nitrite Urine Bilirubin Urine Urobilinogen Ur Leukocyte Esterase Urine RBC Urine WBC Ur Epithelial Cells Urine Bacteria 05/03/19 11:48 WBC RBC Hgb Hct MCV MCH MCHC RDW Plt Count MPV Absolute Neuts (auto) Absolute Lymphs (auto) Absolute Monos (auto) Absolute Eos (auto) Absolute Basos (auto) Neutrophils % Lymphocytes % Monocytes % Eosinophils % Basophils % Sodium Potassium Chloride Carbon Dioxide Anion Gap BUN Creatinine BUN/Creatinine Ratio Random Glucose Serum Osmolality Calcium Lipase Serum HCG, Qual Urine Color Yellow Urine Appearance Clear Urine pH 7.5 Ur Specific [place] 1.015 Urine Protein Negative Urine Glucose (UA) Negative Urine Ketones Negative Urine Blood Negative Urine Nitrite Negative Urine Bilirubin Negative Urine Urobilinogen 0.2 Ur Leukocyte Esterase Negative Urine RBC 0 Urine WBC 0 Ur Epithelial Cells 0-1 Urine Bacteria Rare 05/03/19 13:21 Patient reassessed, workup as above. Her pain is controlled and repeat abdominal exam is benign. Reviewed CT scan showing colitis, constipation, no acute obstruction or other pathology. Will continue outpatient symptomatic management with miralax, colace and antibiotics. She will follow up with her primary care provider. Departure - Departure Clinical Impression: Acute colitis Abdominal pain Qualifiers: Abdominal location: generalized Qualified Code(s): R10.84 - Generalized abdominal pain Time of Disposition: 13:23 Disposition: Discharge to Home or Self Care Condition: Fair Departure Forms: ED Discharge - Pt. Copy, Patient Portal Self Enrollment Instructions: DI for Abdominal Pain-Adult, Diarrhea and Traveler's Diarrhea, Adult (DC) Diet: bland diet Activity: increase activity as tolerated Referrals: Charles Funes MD [Primary Care Provider] - 1-2 Weeks Prescriptions: Tramadol HCl [Tramadol Hydrochloride] 50 mg PO Q6HR PRN #20 tab PRN Reason: Pain Ciprofloxacin [Cipro] 500 mg PO BID #14 tab Docusate Sodium [Colace Cap] 100 mg PO BID #14 cap metroNIDAZOLE [Flagyl] 500 mg PO Q8H #21 tab Ondansetron HCl [Zofran] 4 mg PO Q4H PRN #15 tab PRN Reason: Nausea Prednisone 60 mg PO DAILY #15 tab Home Medications: Ambulatory Orders Clindamycin HCl 300 mg PO TID #42 cap 11/09/18 Mupirocin 2 % Oint [Bactroban Oint] 22 gm TOP BID 10 Days #1 tube 11/09/18 Ciprofloxacin [Cipro] 500 mg PO BID #14 tab 05/03/19 Docusate Sodium [Colace Cap] 100 mg PO BID #14 cap 05/03/19 Ondansetron HCl [Zofran] 4 mg PO Q4H PRN #15 tab 05/03/19 Prednisone 60 mg PO DAILY #15 tab 05/03/19 Tramadol HCl [Tramadol Hydrochloride] 50 mg PO Q6HR PRN #20 tab 05/03/19 metroNIDAZOLE [Flagyl] 500 mg PO Q8H #21 tab 05/03/19 Comments: Hung Arreaga MD Emergency Medicine Physician Number [id number]
[2019-05-03] MEDS ORDERED: traMADol HCL 50 MG TAB PO ONE (13:39)
[2019-05-03 14:13] VITALS: BP 116/75; O2SAT 95
== END 2019-05-03 13:35 | disposition home or self-care (01) ==
LOC: SUPCPDRO 10:44 → ER 10:44
DX: K52.9 Noninfective gastroenteritis and colitis, unspecified (principal); F32.9 Major depressive disorder, single episode, unspecified; Z87.891 Personal history of nicotine dependence
CPT/HCPCS: 36415; 74177; 80048; 81001; 83690; 84703; 85025; J2270; J2405; J7030

== ENCOUNTER 2019-05-25 09:50 | Inpatient (IN) | payer OTHER ==
[2019-05-25] MEDS ORDERED: ONDANSETRON INJ 4 MG/2 ML VIAL IV ONE ×2 (10:23→13:51)
[2019-05-25] MEDS ORDERED: MORPHINE SULFATE INJ 10 MG/ML VIAL IV ONE ×3 (10:23→17:27)
[2019-05-25] MEDS ORDERED: CEFEPIME 2 GM in SODIUM CHL 0.9% 50ML MIN-BAG+ 50 ML IVPB ONE (10:23)
[2019-05-25] MEDS ORDERED: SODIUM CHLORIDE 0.9% 1000ML 1,000 ML IVS ONE (10:23)
--- NOTE | 2019-05-25 10:52 | ED.PDOC ---
History of Present Illness - General Chief Complaint: Abdominal Pain Stated Complaint: L sided abdominal pain, blood in stool Time Seen by Provider: 05/25/19 10:22 Information Source: patient Exam Limitations: no limitations Additional Information: Ms. Euceda is a 28-year-old female who presents to the ED with chief complaint of left-sided abdominal pain. Pain began 3 days ago, has been constant, and is gradually worsening. Patient rates her pain as an 8 out of 10. Patient has a history of ulcerative colitis and indicates she is on no medications for her UC at this time. Her symptoms have been stable for many months. Her GI doctor is Dr. Wright in [place]. Patient denies fever but indicates that she has had nausea and vomiting. Patient has had loose bloody stools since yesterday. Her abdominal pain is crampy in nature. Review of Systems - Review of Systems Constitutional: States: no symptoms reported. Denies: chills, fever EENTM: States: no symptoms reported Respiratory: States: no symptoms reported. Denies: cough, short of breath Cardiology: States: no symptoms reported. Denies: chest pain, palpitations Gastrointestinal/Abdominal: States: see HPI Genitourinary: States: no symptoms reported Musculoskeletal: States: no symptoms reported. Denies: back pain Skin: States: no symptoms reported Neurological: States: no symptoms reported Endocrine: States: no symptoms reported All other Systems: Reviewed and Negative Past Medical History (General) - Patient Medical History Hx Seizures: No Hx Stroke: No Hx Dementia: No Hx Asthma: No Hx of COPD: No Hx Cardiac Disorders: No Hx Congestive Heart Failure: No Hx Pacemaker: No Hx Hypertension: No Hx Thyroid Disease: No Hx Diabetes: No Hx Gastroesophageal Reflux: No Hx Renal Disease: No Hx Cancer: No Hx of HIV: No Hx Hepatitis C: No Hx MRSA: No Surgical History: other - Vaccination History Hx Tetanus, Diphtheria Vaccination: Yes Hx Influenza Vaccination: Yes Hx Pneumococcal Vaccination: No Immunizations Up to Date: Yes - Social History Hx Tobacco Use: Yes Hx Alcohol Use: No Hx Substance Use: No Hx Substance Use Treatment: No Hx Depression: Yes Hx Physical Abuse: No Hx Emotional Abuse: No Hx Suspected Abuse: No - Female History Patient is a Female of Child Bearing Age (10 -59 yrs old): Yes Hx Last Menstrual Period: 05/03/19 Patient : No Expected Date of Delivery:: 04/01/19 Hx Gestational Age: 35 - REPORTS NO PROBLEMS WITH AND NO ABN US Family Medical History - Family History Mother Family History: No Known Name: alon Living Status: Still Living Hx Family Asthma: No Hx Family Congestive Heart Failure: No Hx Family Hypertension: Yes - father Hx Family Stroke: No Hx Cardiac Disease: No Hx Family Diabetes: No Hx Family Cancer: No Physical Exam - Physical Exam General Appearance: Alert, No apparent distress, Other - uncomfortable Eyes, Ears, Nose, Throat Exam: PERRL/EOMI, normal ENT inspection Neck: non-tender, full range of motion, supple, normal inspection Respiratory: chest non-tender, lungs clear, normal breath sounds, no respiratory distress, no accessory muscle use Cardiovascular/Chest: normal peripheral pulses, regular rate, rhythm, no edema Peripheral Pulses: No deficit Gastrointestinal/Abdominal: normal bowel sounds, soft - moderate diffuse abdominal tenderness to palpation greatest in the left lower quadrant Back Exam: normal inspection, no CVA tenderness Extremity: normal range of motion, non-tender, normal inspection Neurologic: management technician II-XII nml as tested, no motor/sensory deficits, alert, normal mood/affect, oriented x 3 Skin Exam: normal color, warm/dry Progress - Progress Progress: 05/25/19 1200 differential diagnosis includes but is not limited to colitis, UC flare, IBS, gastroenteritis. 05/25/19 15:13 Patient is feeling slightly better at this time. Her contrasted CT results show distal colon inflammation consistent with proctitis. 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 Patient's IV has infiltrated and nursing tells me that she is a very difficult IV stick, we'll give po Levaquin and Flagyl in the ED and DC with same and with Rx for analgesics. Strict RT ED precautions discussed with patient. V 05/25/19 15:18 EXAM DESCRIPTION: Abdomen/Pelvis w/Contrast CLINICAL HISTORY: 28 years Female, ulcerative colitis COMPARISON: CT abdomen and pelvis without contrast dated 05/25/2019. TECHNIQUE: Contiguous 3 mm axial images were obtained from the lung bases to the level of the proximal femora after the administration of intravenous and oral contrast. Sagittal and coronal reconstructions were reviewed. FINDINGS: THORAX: The imaged lower thorax demonstrates no gross abnormality. LIVER: The liver demonstrates normal size and density with no intrahepatic biliary ductal dilatation or focal masses. GALLBLADDER: Grossly unremarkable. PANCREAS: Appears normal with no cystic or solid lesions. SPLEEN: Normal ADRENAL GLANDS: Normal with no nodules or masses. KIDNEYS: Both kidneys enhance symmetrically with no hydronephrosis or nephrolithiasis or perinephric fluid collections. No focal masses are identified. The visualized ureters appear grossly unremarkable. STOMACH: Small hiatal hernia with reflux. The stomach is not well-distended limiting detailed evaluation. SMALL BOWEL: The small bowel loops demonstrate variable degrees of distention with no abnormal dilatation or other signs to suggest bowel obstruction. LARGE BOWEL: Circumferential wall thickening and surrounding inflammatory stranding of the distal sigmoid colon and rectum, concerning for proctocolitis. The descending colon is not well-distended. The ascending and transverse colon appears normal. The appendix is well-visualized and appears normal No evidence of free intraperitoneal air or fluid. RETROPERITONEUM: The abdominal aorta is nonaneurysmal with no significant atherosclerosis. The inferior vena cava is normal in size and caliber. No abnormally enlarged retroperitoneal lymph nodes are identified. URINARY BLADDER: Mildly distended with no gross intraluminal abnormality. IUD is identified within the uterus. 4.3 cm left simple ovarian cyst. Right ovary appears normal. ADDITIONAL FINDINGS: None. BONES: No significant degenerative changes are identified in the visualized bones.No evidence of osteophytic or osteoblastic lesions. IMPRESSION: Proctocolitis of the distal sigmoid colon and rectum. 4.3 cm simple left ovarian cyst. No follow-up imaging is recommended. Reference: J Am Shandra Radiol 2013;10:[id number] 05/25/19 16:38 Pt now indicates that she has found someone to care for her children and is able to be admitted to the hospital for IV antibiotics. We'll consult hospitalist for admission. 05/25/19 17:53 I have discussed admission with on-call hospitalist, Dr. Chopra. who accepts patient for admit. He requests that we consult the on-call general surgeon, Dr. Souza. 05/25/19 18:36 I have d/w Dr. Choi who will consult. Departure - Departure Clinical Impression: Proctocolitis Time of Disposition: 15:18 Disposition: Admit Patient Condition: Fair Diet: full liquid diet Referrals: Charles Funes MD [Primary Care Provider] - 1-2 Weeks Prescriptions: metroNIDAZOLE [Flagyl] 500 mg PO Q8H #30 tab Home Medications: Ambulatory Orders Clindamycin HCl 300 mg PO TID #42 cap 11/09/18 Mupirocin 2 % Oint [Bactroban Oint] 22 gm TOP BID 10 Days #1 tube 11/09/18 Ciprofloxacin [Cipro] 500 mg PO BID #14 tab 05/03/19 Docusate Sodium [Colace Cap] 100 mg PO BID #14 cap 05/03/19 Ondansetron HCl [Zofran] 4 mg PO Q4H PRN #15 tab 05/03/19 Prednisone 60 mg PO DAILY #15 tab 05/03/19 Tramadol HCl [Tramadol Hydrochloride] 50 mg PO Q6HR PRN #20 tab 05/03/19 metroNIDAZOLE [Flagyl] 500 mg PO Q8H #21 tab 05/03/19 metroNIDAZOLE [Flagyl] 500 mg PO Q8H #30 tab 05/25/19 Decision To Admit - Decistion To Admit Decision to Admit Reason: Admit from ER
--- NOTE | 2019-05-25 11:50 | CT ---
EXAM DESCRIPTION: Abdoment/Pelvis w/o Contrast CLINICAL HISTORY: 28 years Female, flank pain COMPARISON: 03 May 2019 TECHNIQUE: Transaxial images were obtained with out intravenous or oral contrast media. Sagittal and coronal reconstruction was performed.This exam was performed according to our departmental dose-optimization program, which includes automated exposure control, adjustment of the mA and/or kV according to patient size and/or use of iterative reconstruction technique. FINDINGS: The lung bases are clear. The liver and spleen are normal in appearance. No biliary ductal dilatation is observed. The gallbladder is normal in appearance. No adrenal masses are detected. The pancreas is normal in appearance. Imaging of the kidneys reveals no evidence of hydronephrosis mass cyst or calcification. The appendix is identified and is normal in appearance. An IUD is observed in the uterus. No free pelvic fluid is observed. No inguinal region abnormality is seen. No bone abnormality is seen. A cyst is identified in the left ovary. No follow-up is warranted. No bowel abnormality is detected. IMPRESSION: 1. An IUD is observed in the uterus. 2. No urinary tract calcifications or abnormality is detected. Electronically signed by: Buzz Lizarraga MD 05/25/2019 11:49 AM CDT
--- NOTE | 2019-05-25 14:49 | CT ---
EXAM DESCRIPTION: Abdomen/Pelvis w/Contrast CLINICAL HISTORY: 28 years Female, ulcerative colitis COMPARISON: CT abdomen and pelvis without contrast dated 05/25/2019. TECHNIQUE: Contiguous 3 mm axial images were obtained from the lung bases to the level of the proximal femora after the administration of intravenous and oral contrast. Sagittal and coronal reconstructions were reviewed. FINDINGS: THORAX: The imaged lower thorax demonstrates no gross abnormality. LIVER: The liver demonstrates normal size and density with no intrahepatic biliary ductal dilatation or focal masses. GALLBLADDER: Grossly unremarkable. PANCREAS: Appears normal with no cystic or solid lesions. SPLEEN: Normal ADRENAL GLANDS: Normal with no nodules or masses. KIDNEYS: Both kidneys enhance symmetrically with no hydronephrosis or nephrolithiasis or perinephric fluid collections. No focal masses are identified. The visualized ureters appear grossly unremarkable. STOMACH: Small hiatal hernia with reflux. The stomach is not well-distended limiting detailed evaluation. SMALL BOWEL: The small bowel loops demonstrate variable degrees of distention with no abnormal dilatation or other signs to suggest bowel obstruction. LARGE BOWEL: Circumferential wall thickening and surrounding inflammatory stranding of the distal sigmoid colon and rectum, concerning for proctocolitis. The descending colon is not well-distended. The ascending and transverse colon appears normal. The appendix is well-visualized and appears normal No evidence of free intraperitoneal air or fluid. RETROPERITONEUM: The abdominal aorta is nonaneurysmal with no significant atherosclerosis. The inferior vena cava is normal in size and caliber. No abnormally enlarged retroperitoneal lymph nodes are identified. URINARY BLADDER: Mildly distended with no gross intraluminal abnormality. IUD is identified within the uterus. 4.3 cm left simple ovarian cyst. Right ovary appears normal. ADDITIONAL FINDINGS: None. BONES: No significant degenerative changes are identified in the visualized bones.No evidence of osteophytic or osteoblastic lesions. IMPRESSION: Proctocolitis of the distal sigmoid colon and rectum. 4.3 cm simple left ovarian cyst. No follow-up imaging is recommended. Reference: J Am Shandra Radiol 2013;10:[id number] This exam was performed according to our departmental dose-optimization program, which includes automated exposure control, adjustment of the mA and/or kV according to patient size and/or use of iterative reconstruction technique. Electronically signed by: Lindsey Ayala MD 05/25/2019 2:47 PM CDT
[2019-05-25] MEDS ORDERED: cefTRIAXone SODIUM 1 GM VIAL IM ONE (15:10)
[2019-05-25] MEDS ORDERED: metroNIDAZOLE 500 MG TAB PO ONE (15:10)
[2019-05-25] MEDS ORDERED: levoFLOXacin 500 MG TAB PO ONE (15:12)
[2019-05-25] MEDS ORDERED: PIPERACILLIN/TAZOBACTAM 3.375 GM in SODIUM CHLORIDE 0.9% 100ML 100 ML IVPB ONE (16:40)
[2019-05-25] MEDS ORDERED: PIPERACILLIN/TAZOBACTAM 3.375 GM VIAL IVPB ONE ×3 (17:02→20:26)
[2019-05-25] MEDS ORDERED: SODIUM CHLORIDE 0.9% 100ML 100 ML IVPB ONE ×3 (17:03→20:26)
--- NOTE | 2019-05-25 19:38 | HP ---
SUPERVISING PHYSICIAN: Peyman Arrington MD CHIEF COMPLAINT: Left-sided abdominal pain, bloody stools. HISTORY OF PRESENT ILLNESS: Ms. Euceda is a 28 year-old female patient who presented to the Emergency Room earlier today complaining of left-sided abdominal pain. She noted the pain began about 3 days previously, became constant and worsened. On initial assessment she was rating the pain 8/10. The patient does have a history of ulcerative colitis and indicates at time of admission was not on any medication. She has been seen once by Dr. Richie Wright in [place]. She denied any nausea or vomiting but notes she has had some loose bloody stools in the last 24 hours and having some abdominal cramping. She does have a history of recent after a placenta abruptio in January at 36 weeks in which she lost the baby and required emergency and received up to 7 units of blood. She notes she has been treated now for PTSD since this event and notes she has not been having much appetite and that the symptoms have progressively become worse in the last several weeks, she feels due to stress. She denied any fevers at home. Her initial workup showed a CBC with a white count of 6,700, hemoglobin 11.7, hematocrit 35.1, platelet count 317,000. Differential showed to be with a left shift. Chemistries showed to be unremarkable with anion gap of 17, BUN less than 5, creatinine 0.47. Liver functions all within normal limits. Urinalysis showed to be within normal limits. Urine HCG was negative. Drug screen showed positive for [facility]. Her vital signs showed she was clinically stable with a blood pressure of 130/90, heart rate 79, oxygen saturation 99% on room air and afebrile. She did have a CT of the abdomen with contrast and per radiology interpretation there was note of proctocolitis of the distal sigmoid colon and rectum. Given her symptoms and current flare-up of her ulcerative colitis, the patient is going to be admitted for further treatment and evaluation and surgical consultation. PAST MEDICAL HISTORY: 1. Ulcerative colitis with flare-up in the last few weeks. 2. Recent placenta abruptio with emergency February 21, 2019. 3. 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 4. Gastroesophageal reflux disease. PAST SURGICAL HISTORY: on February 21 due to placenta abruptio. CURRENT MEDICATIONS: 1. Trazodone 50 mg at bedtime. 2. Antacids as needed. 3. Lexapro 10 mg at bedtime. 4. Klonopin 2 mg b.i.d. 5. Tramadol 50 mg every 6 hours as needed. ALLERGIES: Codeine, Tylenol, Wellbutrin, pseudoephedrine. FAMILY HISTORY: Father has a history of diverticulitis. Mother is healthy. She has two brothers and one sister who are all healthy. SOCIAL HISTORY: The patient lives in [place]. She is . She is a [id number] mom. She does smoke approximately 1-1/2 pack of cigarettes per day. She denies any alcohol or illicit drug use. REVIEW OF SYSTEMS: CONSTITUTIONAL: Denies any fevers or chills. HEENT: Denies headaches, ear aches, sore throat, nasal congestion. RESPIRATORY: Denies coughing, wheezing or shortness of breath. CARDIOVASCULAR: Denies chest pain or palpitations, shortness of breath. GASTROINTESTINAL: As noted in history of present illness. GENITOURINARY: Denies dysuria, hematuria, polyuria. MUSCULOSKELETAL: Denies back pain or CVA tenderness. SKIN: No reported lesions or rashes. NEUROLOGIC: Negative for headaches, syncopal episodes, seizures, ataxia. PSYCHIATRIC: Recent history of PTSD, currently under treatment. PHYSICAL EXAMINATION: VITAL SIGNS: Temperature 98.4, pulse 79, blood pressure 130/98, respirations 18, oxygen saturation 99% on room air. Admission weight 59.1 kg. GENERAL: The patient does look generally unwell and exhausted but she is alert, appears to be in no acute distress. HEENT: Tympanic membranes clear bilaterally. Oropharynx is pink, moist without any lesions. NECK: Supple, non-tender, full range of motion. No jugular venous distention noted. CHEST: Lungs clear to auscultation bilaterally without any rhonchi, wheezes, or rales. CARDIOVASCULAR: Regular rate and rhythm without any appreciable murmurs, gallops or rubs. ABDOMEN: Soft with some tenderness noted in the left lower quadrant with a C- section scar that appears to be healing well with no complications. EXTREMITIES: There is no cyanosis, clubbing, or edema. NEUROLOGIC: She is alert and oriented x 3. Cranial nerves II through XII are grossly intact. RECTAL: Deferred. LABORATORY: White count 6,700 with hemoglobin of 11.7, hematocrit 35.1. Platelet count 317,000, differential showed to be without a left shift. Chemistries showed normal electrolytes, normal liver function. Creatinine 0.47. Urinalysis showed to be within normal limits. Urine drug screen was positive for benzodiazepines. Urine HCG was negative. RADIOLOGY: Abdominal CT/pelvis with contrast noted proctocolitis of the distal sigmoid colon and rectum with a noted 4.3 cm simple ovarian cyst. ASSESSMENT: 1. Proctocolitis of the distal sigmoid colon and rectum with patient having a history of ulcerative colitis. 2. Anemia with a recent history of large transfusion, well over 7 units, after placenta abruptio in January. 3. Chronic tobacco abuse, nicotine addiction in a smoker. 4. Hypertension. 5. PTSD. 6. Gastroesophageal reflux disease. PLAN: The patient is going to be admitted for surgical consultation and further treatment of the colitis. She will be on clear liquids. She will have pain management and antiemetics as needed. We will have her on IV fluids. She will be in need of prophylaxis per protocol. I have requested a surgical consultation with Dr. Choi. Will go ahead and start her on some antibiotics until we can get a consultation and further management with Dr. Choi. I have started her on Zosyn given the severity of the findings on CT. I have also ordered stool workup to include culture, C-diff, leukocytes and occult blood. I anticipate her length of stay to be 2 to 3 days after which she will need followup with both Dr. Choi and Dr. Wright in [place]. Until we can transition her to outpatient management, we will continue to monitor and treat as needed. #[id number] [facility]
[2019-05-25] MEDS ORDERED: SODIUM CHLORIDE 0.9% (FLUSH) 10 ML SYG IV PRN (20:06)
[2019-05-25] MEDS ORDERED: IV SET AND CAP CHANGE INJ INJ SCH (20:30)
[2019-05-25] MEDS ORDERED: PANTOPRAZOLE SODIUM IV 40 MG VIAL IV SCH (20:30)
[2019-05-25] MEDS: PIPERACILLIN/TAZOBACTAM 3.375 GM in SODIUM CHLORIDE 0.9% 100ML 100 ML IVPB SCH (20:45)
[2019-05-25] MEDS: DEX 5% W/NACL 0.45% 1000ML 1,000 ML IVS PRN (20:45)
[2019-05-25] MEDS: NICOTINE PATCH 21 MG TD SCH (20:46)
[2019-05-25] MEDS: traZODone HCL 50 MG TAB PO SCH (20:46)
[2019-05-25] MEDS: ESCITALOPRAM 10 MG TAB PO SCH (20:46)
[2019-05-25] MEDS ORDERED: CLONAZEPAM 2 MG PO SCH (21:00)
[2019-05-25] MEDS: MORPHINE SULFATE INJ 10 MG/ML VIAL IV PRN (22:14)
[2019-05-26] MEDS: PIPERACILLIN/TAZOBACTAM 3.375 GM in SODIUM CHLORIDE 0.9% 100ML 100 ML IVPB SCH (04:06)
[2019-05-26] MEDS: MORPHINE SULFATE INJ 10 MG/ML VIAL IV PRN ×6 (06:11→21:19)
[2019-05-26] MEDS ORDERED: PIPERACILLIN/TAZOBACTAM 3.375 GM VIAL IVPB ONE (09:00)
[2019-05-26] MEDS ORDERED: SODIUM CHLORIDE 0.9% 100ML 100 ML IVPB ONE (09:02)
[2019-05-26] MEDS: NICOTINE PATCH 21 MG TD SCH (09:45)
[2019-05-26] MEDS: traMADol HCL 50 MG TAB PO PRN ×2 (11:07→16:50)
[2019-05-26] MEDS: DEX 5% W/NACL 0.45% 1000ML 1,000 ML IVS PRN (11:07)
[2019-05-26] MEDS: methylPREDNISolone SODIUM SUC 40 MG/ML VIAL IV SCH ×3 (11:09→18:57)
[2019-05-26] MEDS ORDERED: MESALAMINE PR SCH ×2 (11:30→21:00)
[2019-05-26] MEDS ORDERED: methylPREDNISolone SODIUM SUC 40 MG/ML VIAL IV SCH (12:00)
[2019-05-26] MEDS: ONDANSETRON INJ 4 MG/2 ML VIAL IV PRN ×2 (13:55→21:24)
[2019-05-26] MEDS ORDERED: LOPERAMIDE CAP 2 MG CAP PO ONE (17:05)
[2019-05-26] MEDS ORDERED: HYDROmorphone HCL INJ 2 MG/ML VIAL IV ONE (18:05)
[2019-05-26] MEDS ORDERED: PANTOPRAZOLE SODIUM IV 40 MG VIAL IV SCH (21:00)
[2019-05-26] MEDS: ESCITALOPRAM 10 MG TAB PO SCH (21:08)
[2019-05-26] MEDS: traZODone HCL 50 MG TAB PO SCH (21:08)
--- NOTE | 2019-05-26 23:05 | PN ---
DATE: 05/26/19 SUPERVISING PHYSICIAN: Peyman Arrington M.D. SUBJECTIVE: The patient is still having a significant amount of pain requiring morphine and Dilaudid for pain control. She was seen by Dr. Choi. She is ambulating. He has not had any nausea. She is actually tolerating clear liquids. She has been afebrile. OBJECTIVE: VITAL SIGNS: Temperature 97.7, pulse 75, blood pressure 102/67, respirations 16, satting 96% on room air. GENERAL: The patient appears to be resting comfortably in no acute distress. CHEST: Lungs are clear to auscultation. HEART: Regular rate and rhythm. ABDOMEN: Soft. Just some tenderness over the abdominal scar suprapubic region. Bowel sounds were active. EXTREMITIES: Without any edema. NEUROLOGIC: She is alert and oriented times three. LABORATORY: No additional laboratory repeated today. She did have a stool occult blood that was negative. There is an IgA and tissue transglutamin IgA pending. ASSESSMENT: 1. 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 2. Anemia with a history of placenta abruptio in January requiring well over 7 units of blood. 3. Chronic tobacco abuse, nicotine addiction in a smoker. 4. Hypertension. 5. PTSD. 6. Gastroesophageal reflux disease. PLAN: At this point will go ahead and do a mesalazine enema daily at night retention. I have started her on Solu-Medrol 20 mg every 6 hours. She has morphine and Dilaudid as needed for pain. She is encouraged to ambulate. Will continue with IV fluids until she is showing adequate intake. 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 Hopefully the patient will do clinically well enough to discharge tomorrow. Until then will continue to monitor and treat as needed. [id number] [facility]
[2019-05-27] MEDS: methylPREDNISolone SODIUM SUC 40 MG/ML VIAL IV SCH ×3 (00:02→11:45)
[2019-05-27] MEDS: MORPHINE SULFATE INJ 10 MG/ML VIAL IV PRN ×5 (00:11→11:45)
[2019-05-27] MEDS: DEX 5% W/NACL 0.45% 1000ML 1,000 ML IVS PRN (00:17)
[2019-05-27] MEDS: ONDANSETRON INJ 4 MG/2 ML VIAL IV PRN ×2 (01:31→08:25)
[2019-05-27] MEDS: traMADol HCL 50 MG TAB PO PRN ×2 (04:18→08:26)
[2019-05-27] MEDS: NICOTINE PATCH 21 MG TD SCH (08:25)
[2019-05-27] MEDS ORDERED: PROMETHAZINE HCL INJ 12.5 MG in SODIUM CHLORIDE 0.9% 50ML 50 ML IVPB PRN (12:38)
[2019-05-27] MEDS ORDERED: HYDROmorphone HCL INJ 2 MG/ML VIAL IV PRN (12:41)
[2019-05-27 14:05] VITALS: O2SAT 95
[2019-05-27 14:11] VITALS: BP 118/72; TEMP 98.4
--- NOTE | 2019-05-31 08:31 | DS ---
SUPERVISING PHYSICIAN: Peyman Arrington MD ADMISSION DIAGNOSIS: 1. Proctocolitis of the distal sigmoid colon and rectum with patient having a history of ulcerative colitis. 2. Anemia with a recent history of large transfusion, well over 7 units, after placenta abruptio in January. 3. Chronic tobacco abuse, nicotine addiction in a smoker. 4. Hypertension. 5. Posttraumatic stress disorder. 6. Gastroesophageal reflux disease. DISCHARGE DIAGNOSIS: 1. 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 2. Anemia with a history of placenta abruptio in January requiring well over 7 units of blood. 3. Chronic tobacco abuse, nicotine addiction in a smoker. 4. Hypertension. 5. Posttraumatic stress disorder. 6. Gastroesophageal reflux disease. REASON FOR HOSPITALIZATION: Ms. Euceda is a 28 year-old female patient who presented to the Emergency Room earlier today complaining of left-sided abdominal pain. She noted the pain began about 3 days previously, became constant and worsened. On initial assessment she was rating the pain 8/10. The patient does have a history of ulcerative colitis and indicates at time of admission was not on any medication. She has been seen once by Dr. Richie Wright in [place]. She denied any nausea or vomiting but notes she has had some loose bloody stools in the last 24 hours and having some abdominal cramping. She does have a history of recent after a placenta abruptio in January at 36 weeks in which she lost the baby and required emergency and received up to 7 units of blood. She notes she has been treated now for PTSD since this event and notes she has not been having much appetite and that the symptoms have progressively become worse in the last several weeks, she feels due to stress. She denied any fevers at home. Her initial workup showed a CBC with a white count of 6,700, hemoglobin 11.7, hematocrit 35.1, platelet count 317,000. Differential showed to be with a left shift. Chemistries showed to be unremarkable with anion gap of 17, BUN less than 5, creatinine 0.47. Liver functions all within normal limits. Urinalysis showed to be within normal limits. Urine HCG was negative. Drug screen showed positive for benzodiazepines that she had received from [facility] in the Emergency Room. Her vital signs showed she was clinically stable with a blood pressure of 130/90, heart rate 79, oxygen saturation 99% on room air and afebrile. She did have a CT of the abdomen with contrast and per radiology interpretation there was note of proctocolitis of the distal sigmoid colon and rectum. Given her symptoms and current flare-up of her ulcerative colitis, the patient is going to be admitted for further treatment and evaluation and surgical consultation. LABORATORY: White count on admission 6,700 and discharge 11,400, but the patient had been started on steroids. Hemoglobin and hematocrit were stable and at discharge were 11.9 and 35.8. Platelet count 314,000. Differential does show a left shift, but again she was on steroids. Chemistries on admission showed just a slightly low carbon dioxide of 19. Renal function was within normal limits with creatinine less than 0.5. Lactic acid 1.0. Liver functions all within normal limits. Urinalysis was within normal limits just with a pH 8.5. Urine HCG was negative. She had one stool occult blood that was negative. She had a positive drug screen for benzodiazepines, but had been given benzodiazepine prior to drug screen in the Emergency Room. IgA and tissue Transglutaminase IgA were pending. MICROBIOLOGY: Stool cultures pending. C. difficile toxin A and B was negative. Stool leukocytes negative. RADIOLOGY: Abdominopelvic with and without contrast per radiologic interpretation, final report, showing proctocolitis of the distal sigmoid colon and rectum with a 4.3 cm simple left ovarian cyst with no followup recommended. Please see that report for full details. CONSULTATION: Dr. Choi saw the patient in consultation. Please see his report for full details. HOSPITAL COURSE: Ms. Euceda was admitted from the Emergency Room for proctocolitis for symptom control. She does have a history of ulcerative colitis. She was started on prednisone as well as mesalamine enemas. She was given pain control, fluids and a liquid diet. On the morning of discharge after the patient spoke with Dr. Choi after I had made rounds, it was decided that the best course of action was to let the patient go home and continue treatment at home with mesalamine enemas and a Solu-Medrol Dosepak and pain control with followup with GI on Tuesday or Tuesday as well as Dr. Choi. DISCHARGE PHYSICAL EXAMINATION: VITAL SIGNS: Temperature 98.4. Pulse 60. Blood pressure 118/74. Respirations 18. Saturation 95% on room air. GENERAL: The patient appeared generally unwell, but in no acute distress. She was alert. CHEST: Lungs are clear to auscultation. HEART: Regular rate and rhythm. ABDOMEN: Soft with some tenderness noted into the suprapubic region. No rebound tenderness, no point tenderness, no peritoneal signs. There was a C- section scar noted to be healing without an complications. EXTREMITIES: Without any edema. PLAN: Ms. Euceda was discharged after consultation with Dr. Choi. Again, it was felt that she could continue with treatment at home. She was to followup with Dr. Wright in [place] on Tuesday as well as Dr. Choi to followup on the results of her celiac testing. Diet was to be clear liquids and to decrease glutamine or have a glutamine free diet. Instructions were provided. Activity to increase as tolerated with some rest. She was encouraged to push fluids. MEDICATIONS ON DISCHARGE: 1. Mesalamine 4 grams rectally daily as directed. 2. Medrol Dosepak 4 mg as directed. 3. Tramadol 50 mg q.6h. as needed for pain. No refills, #20. CONDITION ON DISCHARGE: Stable and improving. DISPOSITION: The patient was discharged to care of family members. #[id number] MTDD
== END 2019-05-27 14:50 | disposition home or self-care (01) | DRG 386 ==
LOC: ER 09:50 → OBSVTOIN 19:37 → MS 19:37
PROVIDERS: ADMIT Nurse Practitioner Family; ATTEND Nurse Practitioner Family
PROC: BW2110Z Computerized Tomography (CT Scan) of Abdomen and Pelvis using Low Osmolar Contrast, Unenhanced and Enhanced (ICD-10-PCS; principal; 2019-05-25)
DX: K51.311 Ulcerative (chronic) rectosigmoiditis with rectal bleeding (principal); K92.1 Melena; D64.9 Anemia, unspecified; R11.2 Nausea with vomiting, unspecified; I10 Essential (primary) hypertension; F43.10 Post-traumatic stress disorder, unspecified; K21.9 Gastro-esophageal reflux disease without esophagitis; F17.210 Nicotine dependence, cigarettes, uncomplicated; Z79.899 Other long term (current) drug therapy; Z88.6 Allergy status to analgesic agent; Z88.8 Allergy status to other drugs, medicaments and biological substances; Z83.79 Family history of other diseases of the digestive system; Z79.891 Long term (current) use of opiate analgesic; Z88.5 Allergy status to narcotic agent

== ENCOUNTER 2019-05-31 12:47 | Emergency (ER) | payer OTHER ==
--- NOTE | 2019-05-31 13:19 | ED.PDOC ---
History of Present Illness - General Chief Complaint: Abdominal Pain Stated Complaint: abdominal pain Time Seen by Provider: 05/31/19 13:08 Information Source: patient, RN notes reviewed, Vital Signs reviewed Exam Limitations: no limitations - History of Present Illness Initial Comments: Reports 1 week of abdominal pain, blood in stool. Was admitted recently she says for UC. Is currently on steroids still. Was given 20 tabs of Tramadol and ran out. Abdominal Pain Onset Location: RLQ, suprapubic Pain Radiation: no radiation Quality: moderate Timing/Duration: 1 week Improving Factors: medication Worsening Factors: nothing Associated Symptoms: diarrhea Review of Systems - Review of Systems Constitutional: States: no symptoms reported EENTM: States: no symptoms reported Respiratory: States: no symptoms reported Cardiology: States: no symptoms reported Gastrointestinal/Abdominal: States: see HPI Genitourinary: States: no symptoms reported Musculoskeletal: States: no symptoms reported Skin: States: no symptoms reported Neurological: States: no symptoms reported Endocrine: States: no symptoms reported Hematologic/Lymphatic: States: no symptoms reported Past Medical History (General) - Patient Medical History Hx Seizures: Yes - 2 years ago Hx Stroke: No Hx Dementia: No Hx Asthma: No Hx of COPD: No Hx Cardiac Disorders: No Hx Congestive Heart Failure: No Hx Pacemaker: No Hx Hypertension: No Hx Thyroid Disease: No Hx Diabetes: No Hx Gastroesophageal Reflux: No Hx Renal Disease: No Hx Cancer: No Hx of HIV: No Hx Hepatitis C: No Hx MRSA: No - Vaccination History Hx Tetanus, Diphtheria Vaccination: Yes Hx Influenza Vaccination: Yes Hx Pneumococcal Vaccination: No - Social History Hx Tobacco Use: Yes Hx Alcohol Use: No Hx Substance Use: No Hx Substance Use Treatment: No Hx Depression: Yes Hx Physical Abuse: No Hx Emotional Abuse: No Hx Suspected Abuse: No - Female History Hx Last Menstrual Period: 05/03/19 Patient : No Expected Date of Delivery:: 04/01/19 Hx Gestational Age: 35 - REPORTS NO PROBLEMS WITH AND NO ABN US Family Medical History - Family History Mother Family History: No Known Name: alon Living Status: Still Living Hx Family Asthma: No Hx Family Congestive Heart Failure: No Hx Family Hypertension: Yes - father Hx Family Stroke: No Hx Cardiac Disease: No Hx Family Diabetes: No Hx Family Cancer: No Physical Exam - Physical Exam General Appearance: Alert, Comfortable Eyes, Ears, Nose, Throat Exam: normal ENT inspection Neck: full range of motion Respiratory: lungs clear, normal breath sounds Cardiovascular/Chest: regular rate, rhythm Peripheral Pulses: No deficit Gastrointestinal/Abdominal: tenderness - Minimally to lower abdomen Back Exam: normal inspection Extremity: normal range of motion Neurologic: practical nurse II-XII nml as tested Skin Exam: normal color Lymphatic: no adenopathy Progress - Progress Progress: 05/31/19 13:20 Patient was offered labs along with pain meds and she denies wanting these. I told her I would not give her IV pain medication. I offered 20 tabs of Tylenol 3 and she said that would help. She says she has GI appt on 06/13/19. I advised her to see PCP. Departure - Departure Clinical Impression: Abdominal pain, Colitis Time of Disposition: 13:22 Disposition: Discharge to Home or Self Care Condition: Excellent Departure Forms: ED Discharge - Pt. Copy, Patient Portal Self Enrollment Instructions: DI for Abdominal Pain-Adult Diet: resume usual diet Activity: increase activity as tolerated Referrals: Charles Funes MD [Primary Care Provider] - 1-2 Days Prescriptions: Acetamin W/Cod #3 Tab [Tylenol w/CODEINE #3] 1 ea PO Q8HRS 10 Days #20 tab Home Medications: Ambulatory Orders Calcium Carbonate (Antacid) [Tums] 1 ea PO QID 05/25/19 Clonazepam [Klonopin] 2 mg PO BID 05/25/19 Escitalopram [Lexapro] 10 mg PO BEDTIME 05/25/19 traZODone HCL [Desyrel] 50 mg PO BEDTIME 05/25/19 Mesalamine W/ Cleanser [Mesalamine] 4 gm [place] DAILY #1 kit 05/26/19 Methylprednisolone [Medrol Dose Oracio] 4 mg PO DAILY 6 Days #21 tab 05/27/19 Tramadol HCl [Tramadol Hydrochloride] 50 mg PO Q6HR PRN #20 tab 05/27/19 Acetamin W/Cod #3 Tab [Tylenol w/CODEINE #3] 1 ea PO Q8HRS 10 Days #20 tab 05/31/19 Comments: For colitis and pain
[2019-05-31 13:48] VITALS: BP 119/86; TEMP 98.7; O2SAT 96
== END 2019-05-31 13:44 | disposition home or self-care (01) ==
LOC: ER 12:47
DX: K52.9 Noninfective gastroenteritis and colitis, unspecified (principal); F32.9 Major depressive disorder, single episode, unspecified; Z87.891 Personal history of nicotine dependence

== ENCOUNTER 2020-01-07 18:11 | Emergency (ER) | payer SELFPAY ==
--- NOTE | 2020-01-07 18:16 | ED.PDOC ---
History of Present Illness - General Time Seen by Provider: 01/07/20 18:13 Source: patient - History of Present Illness Initial Comments: 29 yo female who presents with cc of Left middle finger laceration which occurred at home just [employer]. States a bowl broke while washing the dishes and a sharp edge caused a laceration to the backside of the distal Left middle finger. Reports minimal sharp pain to area w/o radiation, worse with palpation, no meds taken for relief. She saw immediate bleeding and was worried the wound might be deep so she wrapped it with a towel and came straight to the ED. Denies any deformities, weakness, numbness. No other injuries reported. Last tetanus imm was 2018. Allergies/Adverse Reactions: Allergies Acetaminophen [From Tylenol W/Codeine] Allergy (Verified 05/03/19 11:14) Hives Bupropion [From Wellbutrin] Allergy (Verified 05/03/19 11:14) Codeine [From Tylenol W/Codeine] Allergy (Verified 05/03/19 11:14) Pseudoephedrine Allergy (Verified 05/03/19 11:14) Home Medications: Ambulatory Orders Clonazepam [Klonopin] 2 mg PO BID 05/25/19 Escitalopram [Lexapro] 10 mg PO BEDTIME 05/25/19 Review of Systems - Review of Systems Review of Systems: 01/07/20 18:16 as per HPI All other Systems: Reviewed and Negative Past Medical History (General) - Patient Medical History Hx Seizures: Yes - 2 years ago Hx Stroke: No Hx Dementia: No Hx Asthma: No Hx of COPD: No Hx Cardiac Disorders: No Hx Congestive Heart Failure: No Hx Pacemaker: No Hx Hypertension: No Hx Thyroid Disease: No Hx Diabetes: No Hx Gastroesophageal Reflux: No Hx Renal Disease: No Hx Cancer: No Hx of HIV: No Hx Hepatitis C: No Hx MRSA: No - Vaccination History Hx Tetanus, Diphtheria Vaccination: Yes Hx Influenza Vaccination: Yes Hx Pneumococcal Vaccination: No - Social History Hx Tobacco Use: Yes Hx Alcohol Use: No Hx Substance Use: No Hx Substance Use Treatment: No Hx Depression: Yes Hx Physical Abuse: No Hx Emotional Abuse: No Hx Suspected Abuse: No - Female History Hx Last Menstrual Period: 05/03/19 Patient : No Expected Date of Delivery:: 04/01/19 Hx Gestational Age: 35 - REPORTS NO PROBLEMS WITH AND NO ABN US Family Medical History - Family History Mother Family History: No Known Name: alon Living Status: Still Living Hx Family Asthma: No Hx Family Congestive Heart Failure: No Hx Family Hypertension: Yes - father Hx Family Stroke: No Hx Cardiac Disease: No Hx Family Diabetes: No Hx Family Cancer: No Physical Exam - Physical Exam General Appearance: Alert, Comfortable, No apparent distress Eye Exam: bilateral normal Ears, Nose, Throat: normal ENT inspection Neck: full range of motion, normal inspection Respiratory: lungs clear, normal breath sounds, no respiratory distress Cardiovascular/Chest: normal peripheral pulses, regular rate, rhythm, no murmur Peripheral Pulses: radial,right: 2+, radial,left: 2+ Gastrointestinal/Abdominal: non tender, soft Back Exam: normal inspection Extremity: normal range of motion, other - to distal dorsal Left 3rd digit middle phalanx there is an approx 1 cm superficial linear laceration which appears clean, slow venous bleeding which ceases with pressure. No deformity/swelling. Strength & sensation intact throughout Neurologic: no motor/sensory deficits, alert Skin Exam: normal color, warm/dry Progress - Progress Progress: 01/07/20 18:18 Left 3rd digit laceration -superficial in nature. Anticipate easy repair with Dermabond. Will hold continuous pressure for 10-15 mins and ensure hemostasis then clean extensively and repair. Tetanus imm is UTD. 01/07/20 18:48 -Hemostasis achieved with pressure alone. Wound cleansed extensively with Hibiclens and repaired w/o issue with Dermabond. Discussed wound care. -dc home in good condition Valdo Medina MD Billing #[id number] Procedures - Laceration/Wound Repair Left Dorsal Finger Wound Length (cm): 1 Wound's Depth, Shape: superficial, linear Wound Explored: clean Betadine Prep?: No - Hibiclens Wound Repaired With: dermabond Departure - Departure Clinical Impression: Laceration of middle finger of left hand without complication Qualifiers: Encounter type: initial encounter Qualified Code(s): S61.213A - Laceration without foreign body of left middle finger without damage to nail, initial encounter Time of Disposition: 18:50 Disposition: Discharge to Home or Self Care Condition: Good Instructions: Laceration Repair With Glue (DC) Diet: resume usual diet Activity: increase activity as tolerated Referrals: Charles Funes MD [Primary Care Provider] - 1-2 Weeks Home Medications: Ambulatory Orders Clonazepam [Klonopin] 2 mg PO BID 05/25/19 Escitalopram [Lexapro] 10 mg PO BEDTIME 05/25/19 Additional Instructions: Keep the wound clean and dry for next 24-48 hours. Then you may wash gently with warm soap & water 1-2 times daily. Keep clean dressing over the wound. Return if the wound develops worsening redness, warmth, swelling, or pus-like discharge which may indicate infection.
[2020-01-07 18:20] VITALS: O2SAT 98
[2020-01-07] MEDS ORDERED: CHLORHEXIDINE GLUCONATE 4 % 15 ML UD TOP ONE ×2 (18:22→18:26)
[2020-01-07 18:55] VITALS: BP 137/99; TEMP 98
== END 2020-01-07 18:55 | disposition home or self-care (01) ==
LOC: ER 18:11
DX: S61.213A Laceration without foreign body of left middle finger without damage to nail, initial encounter (principal); F17.200 Nicotine dependence, unspecified, uncomplicated; W25.XXXA Contact with sharp glass, initial encounter; Y92.009 Unspecified place in unspecified non-institutional (private) residence as the place of occurrence of the external cause